=== PATIENT | female | born 1945 | race Caucasian/White ===

== ENCOUNTER 2018-04-21 12:53 | Observation (INO) | payer BC, MEDICARE ==
[~2018-04-21] VITALS: Ht 160 cm; Wt 81.1 kg
[2018-04-21] MEDS ORDERED: HCTZ 25MG25 MG PO (13:47)
[2018-04-21] MEDS ORDERED: LISINOPRIL20 MG PO (13:48)
[2018-04-21 13:57] LABS: EOS % 0.4 % (1.0-5.0); HEMATOCRIT 40.2 % (37.0-47.0); HEMOGLOBIN 13.7 g/dL (12.5-16.0); LYMPH# 1.4 (1.50-4.00); MEAN CELL VOLUME 91 fl (78-100); MEAN CORPUSCULAR HEMOGLOBIN 31 pg (27-31); MEAN CORPUSCULAR HGB CONC 34 g/dL (33-37); MEAN PLATELET VOLUME 11.3 fl (7.4-10.4); MONO # 0.7 (0.20-0.80); NEU # 6.3 (1.40-6.50); PLATELET COUNT 239 K/mm3 (130-400); RED BLOOD COUNT 4.44 M/mm3 (4.10-5.30); RED CELL DISTRIBUTION WIDTH 13.8 % (11.5-14.5); WHITE BLOOD COUNT 8.5 K/mm3 (4.8-10.8)
[2018-04-21 14:08] LABS: ALBUMIN 4.5 g/dL (3.5-5.0); CALCIUM 9.9 mg/dL (8.4-10.2); POTASSIUM 3.8 mmol/L (3.6-5.0); TOTAL BILIRUBIN 0.6 mg/dL (0.2-1.3)
[2018-04-21] MEDS ORDERED: ATORVASTATIN CA40 MG PO (14:48)
[2018-04-21] MEDS ORDERED: NEURONTIN300 MG/CAP PO (14:48)
[2018-04-21] MEDS ORDERED: VICTOZA 3-0.6 MG/0.1 SQ (14:48)
[2018-04-21] MEDS ORDERED: ATENOLOL50 MG PO (14:49)
[2018-04-21] MEDS ORDERED: GLIPIZIDE10 M2 PO (14:49)
[2018-04-21] MEDS ORDERED: TYLENOL PM EX-1 EACH PO (14:50)
[2018-04-21] MEDS ORDERED: TYLENOL 8 HOUR650 M1 PO (14:50)
[2018-04-21] MEDS ORDERED: LEVEMIR100 U/M1 SQ (14:51)
[2018-04-21 15:32] VITALS: BP 203/112
[2018-04-21 18:50] VITALS: BP 172/78
[2018-04-21 20:09] VITALS: BP 157/66
[2018-04-21 20:11] VITALS: BP 157/66
[2018-04-21 22:56] VITALS: BP 179/84
[2018-04-22 02:31] VITALS: BP 142/78
[2018-04-22 06:25] VITALS: BP 145/67
[2018-04-22 06:26] LABS: URINE APPEARANCE CLOUDY; URINE BILIRUBIN NEGATIVE (NEGATIVE); URINE BLOOD 50 ery/uL (NEGATIVE); URINE COLOR YELLOW; URINE GLUCOSE NEGATIVE (NEGATIVE); URINE KETONE NEGATIVE (NEGATIVE); URINE LEUKOCYTE ESTERASE 2+ (NEGATIVE); URINE NITRATE POSITIVE (NEGATIVE); URINE PROTEIN(semi-quant) 1+ mg/dL (NEGATIVE); URINE UROBILINOGEN NORMAL (NORMAL); URINE WBC >50 /hpf (0-3)
[2018-04-22 07:09] LABS: EOS % 0.6 % (1.0-5.0); HEMATOCRIT 34.2 % (37.0-47.0); HEMOGLOBIN 11.6 g/dL (12.5-16.0); LYMPH# 1.4 (1.50-4.00); MEAN CELL VOLUME 91 fl (78-100); MEAN CORPUSCULAR HEMOGLOBIN 31 pg (27-31); MEAN CORPUSCULAR HGB CONC 34 g/dL (33-37); MEAN PLATELET VOLUME 10.9 fl (7.4-10.4); MONO # 0.7 (0.20-0.80); NEU # 4.2 (1.40-6.50); PLATELET COUNT 200 K/mm3 (130-400); RED BLOOD COUNT 3.74 M/mm3 (4.10-5.30); RED CELL DISTRIBUTION WIDTH 13.6 % (11.5-14.5); WHITE BLOOD COUNT 6.4 K/mm3 (4.8-10.8)
[2018-04-22 10:22] VITALS: BP 129/73
[2018-04-22 10:24] VITALS: BP 132/78
[2018-04-22] MEDS ORDERED: CLEOCIN HCL300 MG PO (10:29)
[2018-04-22] MEDS ORDERED: ONDANSETRON HYDR4 MG PO (10:30)
== END 2018-04-22 12:08 | disposition home or self-care (01) ==
LOC: ED 12:53 → MED/SURG 19:40
PROVIDERS: ADMIT Family Medicine
DX: E86.0 Dehydration (principal); N39.0 Urinary tract infection, site not specified; I95.1 Orthostatic hypotension; E11.9 Type 2 diabetes mellitus without complications; R11.2 Nausea with vomiting, unspecified; L97.519 Non-pressure chronic ulcer of other part of right foot with unspecified severity; I10 Essential (primary) hypertension; Z79.4 Long term (current) use of insulin; Z79.899 Other long term (current) drug therapy; Z87.891 Personal history of nicotine dependence
CPT/HCPCS: A4216; G0378; J0696; J1815; J2765; J3490; J7030; J7120

== ENCOUNTER 2018-07-18 10:46 | Emergency (ER) | payer MEDICARE ==
[~2018-07-18] VITALS: Wt 77.2 kg
[~2018-07-18 10:46] MED LIST: ATENOLOL50 MG PO; ATORVASTATIN CA40 MG PO; CLEOCIN HCL300 MG PO; GLIPIZIDE10 M2 PO; HCTZ 25MG25 MG PO; LEVEMIR100 U/M1 SQ; LISINOPRIL20 MG PO; NEURONTIN300 MG/CAP PO; ONDANSETRON HYDR4 MG PO; TYLENOL 8 HOUR650 M1 PO; TYLENOL PM EX-1 EACH PO; VICTOZA 3-0.6 MG/0.1 SQ
[2018-07-18] MEDS ORDERED: ASPIR LOW81 MG PO (11:08)
[2018-07-18] MEDS ORDERED: CARVEDILOL12.5 MG PO (11:09)
[2018-07-18] MEDS ORDERED: INSULIN HUMA100 U/ML SQ (11:10)
[2018-07-18 11:20] LABS: EOS # 0.1 (0.04-0.40); EOS % 0.7 % (1.0-5.0); HEMATOCRIT 39.2 % (37.0-47.0); LYMPH# 1.6 (1.50-4.00); MEAN CELL VOLUME 93 fl (78-100); MEAN CORPUSCULAR HEMOGLOBIN 31 pg (27-31); MEAN CORPUSCULAR HGB CONC 33 g/dL (33-37); MEAN PLATELET VOLUME 11.6 fl (7.4-10.4); MONO # 0.9 (0.20-0.80); PLATELET COUNT 255 K/mm3 (130-400); RED BLOOD COUNT 4.23 M/mm3 (4.10-5.30); RED CELL DISTRIBUTION WIDTH 12.9 % (11.5-14.5); WHITE BLOOD COUNT 12.2 K/mm3 (4.8-10.8)
[2018-07-18 11:23] LABS: NEU # 9.6 (1.40-6.50)
[2018-07-18 11:34] LABS: ALBUMIN 3.9 g/dL (3.5-5.0); CALCIUM 9.8 mg/dL (8.4-10.2); POTASSIUM 4.5 mmol/L (3.6-5.0); TOTAL BILIRUBIN 0.6 mg/dL (0.2-1.3); TOTAL PROTEIN 7.2 g/dL (6.3-8.2)
[2018-07-18 14:06] LABS: URINE APPEARANCE HAZY; URINE COLOR YELLOW
[2018-07-18 14:09] LABS: URINE BILIRUBIN NEGATIVE (NEGATIVE); URINE BLOOD TRACE (NEGATIVE); URINE KETONE TR (NEGATIVE); URINE LEUKOCYTE ESTERASE 2+ (NEGATIVE); URINE NITRATE POSITIVE (NEGATIVE); URINE PROTEIN(semi-quant) NEGATIVE (NEGATIVE); URINE UROBILINOGEN NORMAL (NORMAL); URINE WBC 31-50 /hpf (0-3)
[2018-07-18 14:10] LABS: URINE MUCUS PRESENT (NOT PRESENT)
[2018-07-18 16:40] VITALS: BP 171/80
== END 2018-07-18 14:18 | disposition other institution (70) ==
LOC: ED 10:46
PROVIDERS: Nurse Practitioner Primary Care
DX: E86.0 Dehydration (principal); N39.0 Urinary tract infection, site not specified; N17.9 Acute kidney failure, unspecified; E11.9 Type 2 diabetes mellitus without complications; I10 Essential (primary) hypertension; Z79.4 Long term (current) use of insulin; Z79.82 Long term (current) use of aspirin; Z90.710 Acquired absence of both cervix and uterus
CPT/HCPCS: J2550; J7120

== ENCOUNTER 2018-07-18 14:19 | Inpatient (IN) | payer MEDICARE ==
[~2018-07-18] VITALS: Ht 160 cm; Wt 77.1 kg
[~2018-07-18 14:19] MED LIST changes: +ASPIR LOW81 MG PO; +CARVEDILOL12.5 MG PO; +INSULIN HUMA100 U/ML SQ
[2018-07-18 14:43] VITALS: BP 171/80
[2018-07-18 15:19] VITALS: BP 171/80
[2018-07-18 18:33] VITALS: BP 149/90
[2018-07-18 22:45] VITALS: BP 132/75
[2018-07-19] VITALS (8 sets, daily range): BP systolic 111–159; BP diastolic 65–82
[2018-07-19 06:23] LABS: EOS # 0.1 (0.04-0.40); EOS % 0.9 % (1.0-5.0); HEMATOCRIT 32.7 % (37.0-47.0); HEMOGLOBIN 10.8 g/dL (12.5-16.0); MEAN CELL VOLUME 93 fl (78-100); MEAN CORPUSCULAR HEMOGLOBIN 31 pg (27-31); MEAN CORPUSCULAR HGB CONC 33 g/dL (33-37); MEAN PLATELET VOLUME 11.8 fl (7.4-10.4); MONO # 0.6 (0.20-0.80); NEU # 3.9 (1.40-6.50); PLATELET COUNT 175 K/mm3 (130-400); WHITE BLOOD COUNT 6.6 K/mm3 (4.8-10.8)
[2018-07-19 07:05] LABS: ALBUMIN 2.9 g/dL (3.5-5.0); CALCIUM 8.2 mg/dL (8.4-10.2); POTASSIUM 3.7 mmol/L (3.6-5.0); TOTAL BILIRUBIN 0.4 mg/dL (0.2-1.3); TOTAL PROTEIN 5.6 g/dL (6.3-8.2)
[2018-07-20 02:49] VITALS: BP 137/77
[2018-07-20 06:26] VITALS: BP 116/76
[2018-07-20] MEDS ORDERED: MACROBID 100 M100 MG PO (08:32)
[2018-07-20] MEDS ORDERED: ZOFRAN4 M2 PO (08:57)
[2018-07-20] MEDS ORDERED: PREMARIN30 GM VG (09:05)
== END 2018-07-20 09:47 | disposition home or self-care (01) | DRG 683 ==
LOC: MED/SURG 14:19
PROVIDERS: ADMIT Nurse Practitioner Primary Care
DX: N17.9 Acute kidney failure, unspecified (principal); N39.0 Urinary tract infection, site not specified; E86.0 Dehydration; I10 Essential (primary) hypertension; E11.9 Type 2 diabetes mellitus without complications; Z91.81 History of falling; E78.5 Hyperlipidemia, unspecified; Z79.82 Long term (current) use of aspirin; Z79.4 Long term (current) use of insulin; I95.1 Orthostatic hypotension; R42 Dizziness and giddiness; S62.645A Nondisplaced fracture of proximal phalanx of left ring finger, initial encounter for closed fracture; W19.XXXA Unspecified fall, initial encounter; Y92.009 Unspecified place in unspecified non-institutional (private) residence as the place of occurrence of the external cause
CPT/HCPCS: A4216; C9113; J0696; J1650; J1815; J2405; J7030

== ENCOUNTER → 2018-08-20 | Outpatient (CLI) | payer MEDICARE ==
[~2018-08-20] MED LIST changes: +MACROBID 100 M100 MG PO; +PREMARIN30 GM VG; +ZOFRAN4 M2 PO
[2018-08-20 12:25] LABS: EOS # 0.2 (0.04-0.40); HEMATOCRIT 36.1 % (37.0-47.0); HEMOGLOBIN 11.9 g/dL (12.5-16.0); LYMPH# 1.5 (1.50-4.00); MEAN CELL VOLUME 94 fl (78-100); MEAN CORPUSCULAR HEMOGLOBIN 31 pg (27-31); MEAN CORPUSCULAR HGB CONC 33 g/dL (33-37); MEAN PLATELET VOLUME 11.3 fl (7.4-10.4); MONO # 0.6 (0.20-0.80); NEU # 6.7 (1.40-6.50); PLATELET COUNT 237 K/mm3 (130-400); RED BLOOD COUNT 3.84 M/mm3 (4.10-5.30); RED CELL DISTRIBUTION WIDTH 13.1 % (11.5-14.5)
[2018-08-20 12:31] LABS: ALBUMIN 3.8 g/dL (3.5-5.0); CALCIUM 9.7 mg/dL (8.4-10.2); POTASSIUM 4.1 mmol/L (3.6-5.0); TOTAL BILIRUBIN 0.6 mg/dL (0.2-1.3)
== END ==
LOC: LAB 11:43
PROVIDERS: Family Medicine
DX: E56.9 Vitamin deficiency, unspecified (principal); E78.5 Hyperlipidemia, unspecified; I10 Essential (primary) hypertension; E11.9 Type 2 diabetes mellitus without complications

== ENCOUNTER → 2018-09-03 | Outpatient (CLI) | payer MEDICARE | LOC: MAMMO 09:42 | DX: Z12.31 Encounter for screening mammogram for malignant neoplasm of breast (principal) ==

== ENCOUNTER → 2018-09-03 | Outpatient (CLI) | payer MEDICARE | LOC: RAD 09:43 → MAMMO 10:45 | DX: Z12.31 Encounter for screening mammogram for malignant neoplasm of breast (principal); Z13.820 Encounter for screening for osteoporosis; M85.80 Other specified disorders of bone density and structure, unspecified site; E56.9 Vitamin deficiency, unspecified ==

== ENCOUNTER → 2018-10-14 | Outpatient (CLI) | payer MEDICARE | LOC: RAD 12:06 | DX: E11.621 Type 2 diabetes mellitus with foot ulcer (principal); E11.69 Type 2 diabetes mellitus with other specified complication; E11.40 Type 2 diabetes mellitus with diabetic neuropathy, unspecified; M86.8X7 Other osteomyelitis, ankle and foot ==

== ENCOUNTER → 2018-10-30 | Outpatient (CLI) | payer MEDICARE ==
[2018-10-30 09:03] LABS: EOS # 0.1 (0.04-0.40); EOS % 0.8 % (1.0-5.0); HEMATOCRIT 37.5 % (37.0-47.0); HEMOGLOBIN 12.2 g/dL (12.5-16.0); LYMPH# 1.7 (1.50-4.00); MEAN CELL VOLUME 94 fl (78-100); MEAN CORPUSCULAR HEMOGLOBIN 31 pg (27-31); MEAN CORPUSCULAR HGB CONC 33 g/dL (33-37); MEAN PLATELET VOLUME 10.8 fl (7.4-10.4); PLATELET COUNT 388 K/mm3 (130-400); RED BLOOD COUNT 3.99 M/mm3 (4.10-5.30); RED CELL DISTRIBUTION WIDTH 13.7 % (11.5-14.5); WHITE BLOOD COUNT 13.1 K/mm3 (4.8-10.8)
[2018-10-30 09:05] LABS: NEU # 10.3 (1.40-6.50)
[2018-10-30 09:18] LABS: ALBUMIN 3.3 g/dL (3.4-4.8); CALCIUM 9.6 mg/dL (8.3-10.5); POTASSIUM 4.2 mmol/L (3.5-5.1); TOTAL BILIRUBIN 0.6 mg/dL (0.2-1.2); TOTAL PROTEIN 5.9 g/dL (6.2-8.1)
== END ==
LOC: LAB 08:45
PROVIDERS: Family Medicine
DX: E11.9 Type 2 diabetes mellitus without complications (principal); I10 Essential (primary) hypertension

== ENCOUNTER → 2018-12-04 | Outpatient (CLI) | payer MEDICARE ==
[2018-12-04 10:32] LABS: POTASSIUM 4.3 mmol/L (3.5-5.1)
[2018-12-04 10:33] LABS: CALCIUM 9.8 mg/dL (8.3-10.5)
== END ==
LOC: LAB 10:09
PROVIDERS: Family Medicine
DX: N17.9 Acute kidney failure, unspecified (principal)

== ENCOUNTER → 2019-03-05 | Outpatient (CLI) | payer MEDICARE ==
[2019-03-04 16:06] VITALS: BP 138/76
[~2019-03-05] MED LIST changes: +MORGIDOX 1X100100 MG PO; -NEURONTIN300 MG/CAP PO; +NEURONTIN600 M1 PO
[2019-03-05 09:59] LABS: HEMATOCRIT 29.8 % (37.0-47.0); HEMOGLOBIN 9.8 g/dL (12.5-16.0); MEAN PLATELET VOLUME 11.3 fl (7.4-10.4); RED BLOOD COUNT 3.16 M/mm3 (4.10-5.30); RED CELL DISTRIBUTION WIDTH 13.5 % (11.5-14.5); WHITE BLOOD COUNT 13.8 K/mm3 (4.8-10.8)
[2019-03-05 10:08] LABS: ALBUMIN 3.1 g/dL (3.4-4.8); POTASSIUM 3.5 mmol/L (3.5-5.1)
[2019-03-05 10:09] LABS: CALCIUM 9.4 mg/dL (8.3-10.5)
[2019-03-05 10:11] LABS: TOTAL PROTEIN 6.7 g/dL (6.2-8.1)
[2019-03-05 10:13] LABS: TOTAL BILIRUBIN 0.8 mg/dL (0.2-1.2)
== END ==
LOC: LAB 09:16
PROVIDERS: Physician Assistant
DX: L03.116 Cellulitis of left lower limb (principal); Z79.899 Other long term (current) drug therapy

== ENCOUNTER 2019-03-06 09:05 | Outpatient (RCR) | payer MEDICARE, OTHER ==
[2019-03-04 16:06] VITALS: BP 138/76
--- NOTE | 2019-03-04 20:12 | NUR ---
patient will be back tomorrow (for 5 days) for IV Abt and NS bolus. IV was placed today in right AC, IV was left in place to continue her treatment tomorrow. Teaching was given to patient regarding care of IV site. Patient was weak and unstable in transferring from wheelchair to bed and vice versa. Her blood pressure was elevated and she had a temp of 99.2. I phoned Dr. Heard to inform her of this patients vitals and weakness, she advised for patient to return to this ER after this outpatient visit. I informed patient of this and after reviewing her abnormal vitals and her weakness she continued to refuse doctors advice. Patients states that she does not want to be admitted to another hospital and will not go to ER. Her and her daughter were present and aware of this. I informed Ewa the admission discharge rn and she advised that pt must sign a AMA form. She signed and was wheel chaired out by BOAT RENTAL CLERK and myself to car driven by her . She was also given a walker to borrow, and be returned tomorrow. She was offered a wheel chair but her daughter refused, Stating "her house is not wheel chair acessible, she has stairs."
[2019-03-05 09:16] VITALS: BP 166/82
[2019-03-05 10:46] VITALS: BP 158/88
[~2019-03-06] VITALS: Ht 160 cm; Wt 76.8 kg
[2019-03-06 09:30] VITALS: BP 180/84
[2019-03-06 10:54] VITALS: BP 178/87
[2019-03-19] MEDS ORDERED: INSULIN R (N100 U/ML SQ (18:06)
[2019-03-19] MEDS ORDERED: LEVEMIR100 U/M1 SQ (18:08)
[2019-03-19] MEDS ORDERED: DULCOLAX STOOL100 M1 PO (18:10)
[2019-03-19] MEDS ORDERED: MASON NATURAL325 MG PO (18:11)
[2019-03-19] MEDS ORDERED: NEURONTIN300 M1 PO (18:12)
[2019-03-19] MEDS ORDERED: ZESTRIL20 M1 PO (18:13)
[2019-03-19] MEDS ORDERED: PROTONIX TR40 M1 PO (18:13)
[2019-04-03] MEDS ORDERED: PHENERGAN 25 TA25 MG PO (11:14)
[2019-04-03] MEDS ORDERED: SERTRALINE50 MG PO (11:26)
[2019-04-03] MEDS ORDERED: PAIN & FEVER R500 M1 PO (11:27)
[2019-04-03] MEDS ORDERED: CLEOCIN HCL300 MG PO (11:32)
[2019-04-03] MEDS ORDERED: PROBIOTIC1 EAC1 PO (11:33)
[2019-04-11] MEDS ORDERED: AMOXICILLIN AND1 TA2 PO (14:06)
== END 2019-06-02 | disposition still patient (30) ==
LOC: AMSURD
DX: L03.116 Cellulitis of left lower limb (principal); Z79.899 Other long term (current) drug therapy
CPT/HCPCS: A4216; J0696; J7030

== ENCOUNTER 2019-03-06 11:41 | Emergency (ER) | payer MEDICARE ==
[~2019-03-06] VITALS: Ht 160 cm; Wt 81.0 kg
[2019-03-06 12:18] LABS: HEMATOCRIT 29.6 % (37.0-47.0); HEMOGLOBIN 9.6 g/dL (12.5-16.0); MEAN CELL VOLUME 93 fl (78-100); MEAN CORPUSCULAR HEMOGLOBIN 30 pg (27-31); MEAN CORPUSCULAR HGB CONC 32 g/dL (33-37); MEAN PLATELET VOLUME 11.1 fl (7.4-10.4); PLATELET COUNT 258 K/mm3 (130-400); RED BLOOD COUNT 3.18 M/mm3 (4.10-5.30); RED CELL DISTRIBUTION WIDTH 13.3 % (11.5-14.5); WHITE BLOOD COUNT 12.5 K/mm3 (4.8-10.8)
[2019-03-06 12:28] LABS: BAND 1 % (0-10); LYMPHOCYTE 6 % (20-51); MONOCYTE 3 % (3-10); NEUTROPHILS 89 % (42-75)
[2019-03-06 12:33] LABS: ALBUMIN 3.1 g/dL (3.4-4.8); POTASSIUM 3.7 mmol/L (3.5-5.1)
[2019-03-06 12:34] LABS: CALCIUM 9.1 mg/dL (8.3-10.5)
[2019-03-06 12:36] LABS: TOTAL PROTEIN 6.6 g/dL (6.2-8.1)
[2019-03-06 12:37] LABS: TOTAL BILIRUBIN 0.4 mg/dL (0.2-1.2)
[2019-03-06 13:00] VITALS: BP 107/71
[2019-03-06 13:48] LABS: ERYTHROCYTE SEDIMENTATION RATE 77 mm/hr (0-30)
== END 2019-03-06 13:00 | disposition other institution (70) ==
LOC: ED 11:41 → MED/SURG 13:11
PROVIDERS: Nurse Practitioner Family
DX: L03.116 Cellulitis of left lower limb (principal); I10 Essential (primary) hypertension; I25.10 Atherosclerotic heart disease of native coronary artery without angina pectoris; E11.65 Type 2 diabetes mellitus with hyperglycemia; E11.42 Type 2 diabetes mellitus with diabetic polyneuropathy; Z79.4 Long term (current) use of insulin; Z90.710 Acquired absence of both cervix and uterus; Z98.890 Other specified postprocedural states; W01.0XXA Fall on same level from slipping, tripping and stumbling without subsequent striking against object, initial encounter

== ENCOUNTER 2019-03-06 13:31 | Inpatient (IN) | payer MEDICARE, OTHER ==
[~2019-03-06] VITALS: Ht 157.5 cm; Wt 86.5 kg
[2019-03-06 15:05] VITALS: BP 162/93
[2019-03-06 18:36] VITALS: BP 180/82
[2019-03-06 23:00] VITALS: BP 139/72
[2019-03-07] VITALS (7 sets, daily range): BP systolic 101–161; BP diastolic 52–70
[2019-03-07 07:11] LABS: POTASSIUM 3.5 mmol/L (3.5-5.1)
[2019-03-07 07:12] LABS: CALCIUM 9.2 mg/dL (8.3-10.5); EOS # 0.2 (0.04-0.40); HEMATOCRIT 28.5 % (37.0-47.0); HEMOGLOBIN 9.6 g/dL (12.5-16.0); LYMPH# 1.8 (1.50-4.00); MEAN CELL VOLUME 93 fl (78-100); MEAN CORPUSCULAR HEMOGLOBIN 32 pg (27-31); MEAN CORPUSCULAR HGB CONC 34 g/dL (33-37); MEAN PLATELET VOLUME 10.9 fl (7.4-10.4); MONO # 0.7 (0.20-0.80); NEU # 7.6 (1.40-6.50); PLATELET COUNT 304 K/mm3 (130-400); RED BLOOD COUNT 3.05 M/mm3 (4.10-5.30); RED CELL DISTRIBUTION WIDTH 13.4 % (11.5-14.5); WHITE BLOOD COUNT 10.4 K/mm3 (4.8-10.8)
[2019-03-08 02:45] VITALS: BP 108/65
[2019-03-08 06:07] VITALS: BP 122/75
[2019-03-08 09:22] LABS: EOS # 0.2 (0.04-0.40); EOS % 1.9 % (1.0-5.0); HEMATOCRIT 28.3 % (37.0-47.0); HEMOGLOBIN 9.3 g/dL (12.5-16.0); LYMPH# 1.3 (1.50-4.00); MEAN CELL VOLUME 94 fl (78-100); MEAN CORPUSCULAR HEMOGLOBIN 31 pg (27-31); MEAN CORPUSCULAR HGB CONC 33 g/dL (33-37); MEAN PLATELET VOLUME 10.7 fl (7.4-10.4); MONO # 0.7 (0.20-0.80); NEU # 6.7 (1.40-6.50); PLATELET COUNT 279 K/mm3 (130-400); RED BLOOD COUNT 3.02 M/mm3 (4.10-5.30); RED CELL DISTRIBUTION WIDTH 13.6 % (11.5-14.5); WHITE BLOOD COUNT 8.9 K/mm3 (4.8-10.8)
[2019-03-08 09:28] LABS: ALBUMIN 2.8 g/dL (3.4-4.8); POTASSIUM 3.7 mmol/L (3.5-5.1)
[2019-03-08 09:30] LABS: CALCIUM 8.7 mg/dL (8.3-10.5)
[2019-03-08 09:31] LABS: TOTAL PROTEIN 5.6 g/dL (6.2-8.1)
[2019-03-08 09:33] LABS: TOTAL BILIRUBIN 0.2 mg/dL (0.2-1.2)
[2019-03-08 10:22] LABS: ERYTHROCYTE SEDIMENTATION RATE 105 mm/hr (0-30)
[2019-03-08 11:33] VITALS: BP 144/79
[2019-03-08 15:52] VITALS: BP 128/76
[2019-03-08 18:36] VITALS: BP 136/81
[2019-03-08 23:04] VITALS: BP 106/68
[2019-03-09 03:02] VITALS: BP 127/76
[2019-03-09 06:04] VITALS: BP 141/77
[2019-03-09 11:11] VITALS: BP 146/83
[2019-03-09 15:28] VITALS: BP 144/70
[2019-03-09 18:42] VITALS: BP 154/62
[2019-03-09 23:20] VITALS: BP 137/76
[2019-03-10 03:54] VITALS: BP 139/72
[2019-03-10 06:01] VITALS: BP 120/70
[2019-03-10 11:00] VITALS: BP 149/78
[2019-03-10 15:33] VITALS: BP 146/73
[2019-03-10 18:55] VITALS: BP 171/69
[2019-03-10 23:05] VITALS: BP 127/77
[2019-03-11 02:39] VITALS: BP 146/71
[2019-03-11 06:14] VITALS: BP 115/60
[2019-03-11 07:13] LABS: EOS # 0.3 (0.04-0.40); EOS % 3.4 % (1.0-5.0); HEMATOCRIT 24.3 % (37.0-47.0); LYMPH# 1.5 (1.50-4.00); MEAN CELL VOLUME 94 fl (78-100); MEAN CORPUSCULAR HEMOGLOBIN 31 pg (27-31); MEAN CORPUSCULAR HGB CONC 33 g/dL (33-37); MEAN PLATELET VOLUME 10.3 fl (7.4-10.4); MONO # 0.6 (0.20-0.80); NEU # 4.8 (1.40-6.50); PLATELET COUNT 261 K/mm3 (130-400); RED BLOOD COUNT 2.59 M/mm3 (4.10-5.30); RED CELL DISTRIBUTION WIDTH 13.4 % (11.5-14.5); WHITE BLOOD COUNT 7.3 K/mm3 (4.8-10.8)
[2019-03-11 07:15] LABS: ALBUMIN 2.3 g/dL (3.4-4.8); POTASSIUM 3.5 mmol/L (3.5-5.1)
[2019-03-11 07:16] LABS: CALCIUM 7.8 mg/dL (8.3-10.5)
[2019-03-11 07:37] LABS: TOTAL BILIRUBIN 0.1 mg/dL (0.2-1.2)
[2019-03-11 08:36] LABS: ERYTHROCYTE SEDIMENTATION RATE 89 mm/hr (0-30)
[2019-03-11 11:12] VITALS: BP 148/77
[2019-03-11 15:17] VITALS: BP 142/66
[2019-03-11 18:33] VITALS: BP 149/81
[2019-03-11 23:08] VITALS: BP 114/68
[2019-03-12 03:20] VITALS: BP 132/73
[2019-03-12 06:20] VITALS: BP 132/69
[2019-03-12 11:19] VITALS: BP 162/81
[2019-03-12 15:37] VITALS: BP 150/78
[2019-03-12 17:15] VITALS: BP 175/78
== END 2019-03-12 17:58 | disposition short-term general hospital (02) | DRG 638 ==
LOC: MED/SURG 13:31
PROVIDERS: Family Medicine; ADMIT Nurse Practitioner Family
DX: E11.69 Type 2 diabetes mellitus with other specified complication (principal); M86.8X6 Other osteomyelitis, lower leg; L03.116 Cellulitis of left lower limb; E11.628 Type 2 diabetes mellitus with other skin complications; N17.9 Acute kidney failure, unspecified; B95.2 Enterococcus as the cause of diseases classified elsewhere; B95.1 Streptococcus, group B, as the cause of diseases classified elsewhere; E11.65 Type 2 diabetes mellitus with hyperglycemia; N18.9 Chronic kidney disease, unspecified; I12.9 Hypertensive chronic kidney disease with stage 1 through stage 4 chronic kidney disease, or unspecified chronic kidney disease; E11.22 Type 2 diabetes mellitus with diabetic chronic kidney disease; D63.1 Anemia in chronic kidney disease; Z79.4 Long term (current) use of insulin; I25.10 Atherosclerotic heart disease of native coronary artery without angina pectoris; E11.42 Type 2 diabetes mellitus with diabetic polyneuropathy; R53.81 Other malaise
CPT/HCPCS: A9585; J1650; J1815; J3370; J7030; J7050

== ENCOUNTER 2019-03-19 11:55 | Inpatient (IN) | payer MEDICARE ==
[~2019-03-19] VITALS: Ht 157.5 cm; Wt 79.2 kg
[2019-03-19 14:36] VITALS: BP 165/78
[2019-03-19 17:17] LABS: BASO # 0.1 (0.02-0.10); EOS # 0.4 (0.04-0.40); EOS % 3.5 % (1.0-5.0); HEMATOCRIT 29.8 % (37.0-47.0); HEMOGLOBIN 9.7 g/dL (12.5-16.0); LYMPH# 1.9 (1.50-4.00); MEAN CELL VOLUME 94 fl (78-100); MEAN CORPUSCULAR HEMOGLOBIN 31 pg (27-31); MEAN CORPUSCULAR HGB CONC 33 g/dL (33-37); MEAN PLATELET VOLUME 10.4 fl (7.4-10.4); MONO # 0.7 (0.20-0.80); NEU # 7.1 (1.40-6.50); PLATELET COUNT 290 K/mm3 (130-400); RED BLOOD COUNT 3.17 M/mm3 (4.10-5.30); RED CELL DISTRIBUTION WIDTH 13.9 % (11.5-14.5); WHITE BLOOD COUNT 10.1 K/mm3 (4.8-10.8)
[2019-03-19 17:29] LABS: ALBUMIN 3.2 g/dL (3.4-4.8)
[2019-03-19 17:32] LABS: TOTAL PROTEIN 6.3 g/dL (6.2-8.1)
[2019-03-19 17:33] LABS: TOTAL BILIRUBIN 0.2 mg/dL (0.2-1.2)
[2019-03-19] MEDS ORDERED: INSULIN R (N100 U/ML SQ (18:06)
[2019-03-19] MEDS ORDERED: LEVEMIR100 U/M1 SQ (18:08)
[2019-03-19] MEDS ORDERED: DULCOLAX STOOL100 M1 PO (18:10)
[2019-03-19] MEDS ORDERED: MASON NATURAL325 MG PO (18:11)
[2019-03-19] MEDS ORDERED: NEURONTIN300 M1 PO (18:12)
[2019-03-19] MEDS ORDERED: PROTONIX TR40 M1 PO (18:13)
[2019-03-19] MEDS ORDERED: ZESTRIL20 M1 PO (18:13)
[2019-03-19 18:43] VITALS: BP 165/78
[2019-03-19 19:18] VITALS: BP 172/90
[2019-03-19 20:48] LABS: URINE APPEARANCE CLOUDY; URINE BILIRUBIN NEGATIVE (NEGATIVE); URINE BLOOD TRACE (NEGATIVE); URINE COLOR YELLOW; URINE GLUCOSE NEGATIVE (NEGATIVE); URINE KETONE NEGATIVE (NEGATIVE); URINE LEUKOCYTE ESTERASE 1+ (NEGATIVE); URINE NITRATE NEGATIVE (NEGATIVE); URINE PROTEIN(semi-quant) TRACE mg/dL (NEGATIVE); URINE UROBILINOGEN NORMAL (NORMAL)
[2019-03-20 06:23] VITALS: BP 143/84
[2019-03-20 18:02] VITALS: BP 126/62
[2019-03-21 06:30] VITALS: BP 114/61
[2019-03-21 17:36] VITALS: BP 135/83
[2019-03-22 06:23] VITALS: BP 127/76
[2019-03-22 18:06] VITALS: BP 164/85
[2019-03-23 06:17] VITALS: BP 123/65
[2019-03-23 12:40] VITALS: BP 127/71
[2019-03-23 13:57] VITALS: BP 123/69
[2019-03-24 06:19] VITALS: BP 99/63
[2019-03-24 09:30] VITALS: BP 149/77
[2019-03-24 17:12] VITALS: BP 130/69
[2019-03-25 06:39] VITALS: BP 158/88
[2019-03-25 18:10] VITALS: BP 105/50
[2019-03-26 06:07] VITALS: BP 149/84
[2019-03-26 14:39] LABS: BASO # 0.1 (0.02-0.10); EOS # 0.3 (0.04-0.40); EOS % 3.8 % (1.0-5.0); HEMATOCRIT 30.8 % (37.0-47.0); HEMOGLOBIN 9.8 g/dL (12.5-16.0); LYMPH# 1.4 (1.50-4.00); MEAN CELL VOLUME 95 fl (78-100); MEAN CORPUSCULAR HEMOGLOBIN 30 pg (27-31); MEAN CORPUSCULAR HGB CONC 32 g/dL (33-37); MEAN PLATELET VOLUME 11.1 fl (7.4-10.4); MONO # 0.9 (0.20-0.80); NEU # 5.7 (1.40-6.50); PLATELET COUNT 336 K/mm3 (130-400); RED BLOOD COUNT 3.23 M/mm3 (4.10-5.30); RED CELL DISTRIBUTION WIDTH 13.7 % (11.5-14.5); WHITE BLOOD COUNT 8.3 K/mm3 (4.8-10.8)
[2019-03-26 14:40] VITALS: BP 92/48
[2019-03-26 14:42] LABS: ALBUMIN 3.3 g/dL (3.4-4.8); POTASSIUM 4.1 mmol/L (3.5-5.1)
[2019-03-26 14:43] LABS: CALCIUM 9.8 mg/dL (8.3-10.5)
[2019-03-26 14:44] LABS: TOTAL PROTEIN 6.6 g/dL (6.2-8.1)
[2019-03-26 14:46] LABS: TOTAL BILIRUBIN 0.2 mg/dL (0.2-1.2)
[2019-03-26 19:13] VITALS: BP 182/91
[2019-03-27 06:06] VITALS: BP 125/60
[2019-03-27 18:09] VITALS: BP 144/70
[2019-03-28 06:18] VITALS: BP 114/68
[2019-03-28 16:04] LABS: BASO # 0.1 (0.02-0.10); EOS # 0.5 (0.04-0.40); EOS % 5.6 % (1.0-5.0); HEMATOCRIT 30.8 % (37.0-47.0); HEMOGLOBIN 9.8 g/dL (12.5-16.0); LYMPH# 1.7 (1.50-4.00); MEAN CELL VOLUME 95 fl (78-100); MEAN CORPUSCULAR HEMOGLOBIN 30 pg (27-31); MEAN CORPUSCULAR HGB CONC 32 g/dL (33-37); MEAN PLATELET VOLUME 10.8 fl (7.4-10.4); MONO # 0.9 (0.20-0.80); NEU # 5.6 (1.40-6.50); PLATELET COUNT 335 K/mm3 (130-400); RED BLOOD COUNT 3.25 M/mm3 (4.10-5.30); RED CELL DISTRIBUTION WIDTH 13.5 % (11.5-14.5); WHITE BLOOD COUNT 8.8 K/mm3 (4.8-10.8)
[2019-03-28 17:20] LABS: ERYTHROCYTE SEDIMENTATION RATE 87 mm/hr (0-30)
[2019-03-28 18:08] VITALS: BP 134/78
[2019-03-29 06:24] VITALS: BP 109/63
[2019-03-29 17:41] VITALS: BP 116/80
[2019-03-30 06:26] VITALS: BP 147/80
[2019-03-30 18:24] VITALS: BP 121/66
[2019-03-31 06:23] VITALS: BP 115/72
[2019-03-31 18:33] VITALS: BP 134/78
[2019-04-01 05:55] LABS: BASO # 0.1 (0.02-0.10); EOS # 0.5 (0.04-0.40); EOS % 7.8 % (1.0-5.0); HEMATOCRIT 30.7 % (37.0-47.0); HEMOGLOBIN 9.6 g/dL (12.5-16.0); LYMPH# 1.5 (1.50-4.00); MEAN CELL VOLUME 96 fl (78-100); MEAN CORPUSCULAR HEMOGLOBIN 30 pg (27-31); MEAN CORPUSCULAR HGB CONC 31 g/dL (33-37); MEAN PLATELET VOLUME 10.8 fl (7.4-10.4); MONO # 0.6 (0.20-0.80); NEU # 3.6 (1.40-6.50); PLATELET COUNT 298 K/mm3 (130-400); RED BLOOD COUNT 3.21 M/mm3 (4.10-5.30); RED CELL DISTRIBUTION WIDTH 13.3 % (11.5-14.5); WHITE BLOOD COUNT 6.3 K/mm3 (4.8-10.8)
[2019-04-01 06:13] LABS: POTASSIUM 4.6 mmol/L (3.5-5.1)
[2019-04-01 06:14] LABS: CALCIUM 9.6 mg/dL (8.3-10.5)
[2019-04-01 06:21] VITALS: BP 108/71
[2019-04-01 18:02] VITALS: BP 146/89
[2019-04-02 06:15] VITALS: BP 129/78
[2019-04-02 08:30] VITALS: BP 175/81
[2019-04-02 09:49] LABS: POTASSIUM 4.3 mmol/L (3.5-5.1)
[2019-04-02 09:50] LABS: CALCIUM 9.7 mg/dL (8.3-10.5)
[2019-04-02 18:49] VITALS: BP 159/85
[2019-04-03 06:21] LABS: POTASSIUM 4.5 mmol/L (3.5-5.1)
[2019-04-03 06:22] LABS: CALCIUM 9.4 mg/dL (8.3-10.5)
[2019-04-03 06:28] VITALS: BP 127/72
[2019-04-03] MEDS ORDERED: PHENERGAN 25 TA25 MG PO (11:14)
[2019-04-03] MEDS ORDERED: SERTRALINE50 MG PO (11:26)
[2019-04-03] MEDS ORDERED: PAIN & FEVER R500 M1 PO (11:27)
[2019-04-03] MEDS ORDERED: CLEOCIN HCL300 MG PO (11:32)
[2019-04-03] MEDS ORDERED: PROBIOTIC1 EAC1 PO (11:33)
[2019-04-03 15:01] VITALS: BP 126/70
== END 2019-04-03 15:07 | disposition home health service (06) | DRG 560 ==
LOC: MED/SURG 11:55
PROVIDERS: Family Medicine; Nurse Practitioner Primary Care; Physician Assistant; ADMIT Nurse Practitioner
DX: Z47.81 Encounter for orthopedic aftercare following surgical amputation (principal); L03.116 Cellulitis of left lower limb; N17.9 Acute kidney failure, unspecified; Z89.412 Acquired absence of left great toe; E11.22 Type 2 diabetes mellitus with diabetic chronic kidney disease; E11.65 Type 2 diabetes mellitus with hyperglycemia; I12.9 Hypertensive chronic kidney disease with stage 1 through stage 4 chronic kidney disease, or unspecified chronic kidney disease; N18.9 Chronic kidney disease, unspecified; Z79.4 Long term (current) use of insulin; D50.9 Iron deficiency anemia, unspecified; D63.8 Anemia in other chronic diseases classified elsewhere; I25.10 Atherosclerotic heart disease of native coronary artery without angina pectoris; E11.42 Type 2 diabetes mellitus with diabetic polyneuropathy; M19.90 Unspecified osteoarthritis, unspecified site; E78.5 Hyperlipidemia, unspecified; R53.81 Other malaise; F41.8 Other specified anxiety disorders; B95.2 Enterococcus as the cause of diseases classified elsewhere; B95.1 Streptococcus, group B, as the cause of diseases classified elsewhere; R11.2 Nausea with vomiting, unspecified
CPT/HCPCS: J0696; J1650; J1815; J2405; J7030

== ENCOUNTER → 2019-04-09 | Outpatient (CLI) | payer MEDICARE ==
[2019-04-03 15:01] VITALS: BP 126/70
[~2019-04-09] MED LIST changes: +AMOXICILLIN AND1 TA2 PO; +DULCOLAX STOOL100 M1 PO; +INSULIN R (N100 U/ML SQ; +MASON NATURAL325 MG PO; +NEURONTIN300 M1 PO; +PAIN & FEVER R500 M1 PO; +PHENERGAN 25 TA25 MG PO; +PROBIOTIC1 EAC1 PO; +PROTONIX TR40 M1 PO; +SERTRALINE50 MG PO; +ZESTRIL20 M1 PO
== END ==
LOC: LAB 10:46
DX: E11.621 Type 2 diabetes mellitus with foot ulcer (principal)

== ENCOUNTER 2019-04-11 13:22 | Emergency (ER) | payer MEDICARE ==
[~2019-04-11] VITALS: Wt 78.0 kg
[~2019-04-11 13:22] MED LIST changes: -AMOXICILLIN AND1 TA2 PO
[2019-04-11] MEDS ORDERED: AMOXICILLIN AND1 TA2 PO (14:06)
[2019-04-11 14:20] LABS: BASO # 0.1 (0.02-0.10); EOS # 0.2 (0.04-0.40); EOS % 2.6 % (1.0-5.0); HEMOGLOBIN 10.9 g/dL (12.5-16.0); LYMPH# 1.7 (1.50-4.00); MEAN CELL VOLUME 94 fl (78-100); MEAN CORPUSCULAR HEMOGLOBIN 30 pg (27-31); MEAN CORPUSCULAR HGB CONC 32 g/dL (33-37); MEAN PLATELET VOLUME 10.8 fl (7.4-10.4); MONO # 0.6 (0.20-0.80); NEU # 5.3 (1.40-6.50); PLATELET COUNT 274 K/mm3 (130-400); RED BLOOD COUNT 3.62 M/mm3 (4.10-5.30); RED CELL DISTRIBUTION WIDTH 13.6 % (11.5-14.5); WHITE BLOOD COUNT 7.9 K/mm3 (4.8-10.8)
[2019-04-11 14:29] LABS: POTASSIUM 4.6 mmol/L (3.5-5.1)
[2019-04-11 14:30] LABS: CALCIUM 9.6 mg/dL (8.3-10.5)
[2019-04-11 15:03] VITALS: BP 140/89
== END 2019-04-11 15:04 | disposition home or self-care (01) ==
LOC: ED 13:22
PROVIDERS: Physician Assistant
DX: T87.44 Infection of amputation stump, left lower extremity (principal); L03.032 Cellulitis of left toe; I10 Essential (primary) hypertension; E11.9 Type 2 diabetes mellitus without complications; F32.9 Major depressive disorder, single episode, unspecified; Z90.49 Acquired absence of other specified parts of digestive tract; Z79.4 Long term (current) use of insulin

== ENCOUNTER → 2019-05-13 | Outpatient (CLI) | payer MEDICARE ==
[~2019-05-13] MED LIST changes: +AMOXICILLIN AND1 TA2 PO
[2019-05-13 15:07] LABS: BASO # 0.1 (0.02-0.10); EOS # 0.2 (0.04-0.40); EOS % 2.5 % (1.0-5.0); HEMATOCRIT 34.7 % (37.0-47.0); HEMOGLOBIN 11.2 g/dL (12.5-16.0); LYMPH# 1.4 (1.50-4.00); MEAN CELL VOLUME 91 fl (78-100); MEAN CORPUSCULAR HEMOGLOBIN 29 pg (27-31); MEAN CORPUSCULAR HGB CONC 32 g/dL (33-37); MEAN PLATELET VOLUME 11.2 fl (7.4-10.4); MONO # 0.8 (0.20-0.80); NEU # 6.7 (1.40-6.50); PLATELET COUNT 269 K/mm3 (130-400); RED BLOOD COUNT 3.82 M/mm3 (4.10-5.30); RED CELL DISTRIBUTION WIDTH 13.6 % (11.5-14.5); WHITE BLOOD COUNT 9.2 K/mm3 (4.8-10.8)
[2019-05-13 15:16] LABS: ALBUMIN 3.7 g/dL (3.4-4.8)
[2019-05-13 15:17] LABS: POTASSIUM 4.7 mmol/L (3.5-5.1)
[2019-05-13 15:18] LABS: CALCIUM 9.6 mg/dL (8.3-10.5)
[2019-05-13 15:21] LABS: TOTAL BILIRUBIN 0.3 mg/dL (0.2-1.2)
[2019-05-13 16:08] LABS: ERYTHROCYTE SEDIMENTATION RATE 60 mm/hr (0-30)
== END ==
LOC: LAB 14:50
PROVIDERS: Family Medicine
DX: L03.90 Cellulitis, unspecified (principal)

== ENCOUNTER → 2019-05-15 | Outpatient (CLI) | payer MEDICARE | LOC: RAD 11:19 | DX: S93.129A Dislocation of metatarsophalangeal joint of unspecified toe(s), initial encounter (principal); M86.9 Osteomyelitis, unspecified; L03.90 Cellulitis, unspecified; Z89.412 Acquired absence of left great toe ==

== ENCOUNTER → 2019-07-22 | Outpatient (CLI) | payer MEDICARE ==
[2019-07-22 12:26] LABS: BASO # 0.1 (0.02-0.10); EOS # 0.5 (0.04-0.40); EOS % 4.4 % (1.0-5.0); HEMATOCRIT 36.9 % (37.0-47.0); HEMOGLOBIN 11.9 g/dL (12.5-16.0); MEAN CELL VOLUME 90 fl (78-100); MEAN CORPUSCULAR HEMOGLOBIN 29 pg (27-31); MEAN CORPUSCULAR HGB CONC 32 g/dL (33-37); MEAN PLATELET VOLUME 11.1 fl (7.4-10.4); MONO # 0.8 (0.20-0.80); NEU # 8.2 (1.40-6.50); PLATELET COUNT 324 K/mm3 (130-400); RED BLOOD COUNT 4.11 M/mm3 (4.10-5.30); RED CELL DISTRIBUTION WIDTH 14.9 % (11.5-14.5); WHITE BLOOD COUNT 11.6 K/mm3 (4.8-10.8)
[2019-07-22 14:55] LABS: ALBUMIN 3.9 g/dL (3.4-4.8); POTASSIUM 4.9 mmol/L (3.5-5.1)
[2019-07-22 14:56] LABS: CALCIUM 9.9 mg/dL (8.3-10.5)
[2019-07-22 14:57] LABS: TOTAL PROTEIN 6.7 g/dL (6.2-8.1)
[2019-07-22 14:59] LABS: TOTAL BILIRUBIN 0.2 mg/dL (0.2-1.2)
== END ==
LOC: RAD 12:08
PROVIDERS: Family Medicine
DX: R55 Syncope and collapse (principal)

== ENCOUNTER → 2019-09-05 | Outpatient (CLI) | payer MEDICARE | LOC: CARDLAB 07:42 → CARDREHAB 08:47 → CARDLAB 09:26 | DX: R07.9 Chest pain, unspecified (principal); R55 Syncope and collapse | CPT/HCPCS: A9500 ==

== ENCOUNTER 2019-11-11 16:00 | Emergency (ER) | payer MEDICARE ==
[~2019-11-11] VITALS: Ht 160 cm; Wt 79.1 kg
[2019-11-11 17:05] LABS: BASO # 0.1 (0.02-0.10); EOS # 0.1 (0.04-0.40); EOS % 0.9 % (1.0-5.0); HEMATOCRIT 38.8 % (37.0-47.0); LYMPH# 2.2 (1.50-4.00); MEAN CELL VOLUME 86 fl (78-100); MEAN CORPUSCULAR HEMOGLOBIN 29 pg (27-31); MEAN CORPUSCULAR HGB CONC 34 g/dL (33-37); MEAN PLATELET VOLUME 11.2 fl (7.4-10.4); MONO # 0.8 (0.20-0.80); PLATELET COUNT 298 K/mm3 (130-400); RED BLOOD COUNT 4.52 M/mm3 (4.10-5.30); WHITE BLOOD COUNT 12.6 K/mm3 (4.8-10.8)
[2019-11-11 17:11] LABS: NEU # 9.5 (1.40-6.50)
[2019-11-11 17:15] LABS: ALBUMIN 4.1 g/dL (3.4-4.8)
[2019-11-11 17:16] LABS: POTASSIUM 3.7 mmol/L (3.5-5.1)
[2019-11-11 17:17] LABS: CALCIUM 9.8 mg/dL (8.3-10.5)
[2019-11-11 17:18] LABS: TOTAL PROTEIN 7.3 g/dL (6.2-8.1)
[2019-11-11 17:20] LABS: TOTAL BILIRUBIN 0.5 mg/dL (0.2-1.2)
[2019-11-11 17:30] LABS: TROPONIN-I 0.07 ng/mL (<0.030)
[2019-11-11 19:28] LABS: URINE APPEARANCE CLEAR; URINE BILIRUBIN NEGATIVE (NEGATIVE); URINE BLOOD NEGATIVE (NEGATIVE); URINE COLOR YELLOW; URINE KETONE NEGATIVE (NEGATIVE); URINE LEUKOCYTE ESTERASE NEGATIVE (NEGATIVE); URINE NITRATE NEGATIVE (NEGATIVE); URINE PROTEIN(semi-quant) 2+ mg/dL (NEGATIVE); URINE UROBILINOGEN NORMAL (NORMAL)
[2019-11-11 21:32] VITALS: BP 160/92
== END 2019-11-11 21:32 | disposition short-term general hospital (02) ==
LOC: ED 16:00
PROVIDERS: Nurse Practitioner Family
DX: N17.9 Acute kidney failure, unspecified (principal); I16.1 Hypertensive emergency; R11.2 Nausea with vomiting, unspecified; R51 Headache; R42 Dizziness and giddiness; R79.89 Other specified abnormal findings of blood chemistry; E11.42 Type 2 diabetes mellitus with diabetic polyneuropathy; E11.22 Type 2 diabetes mellitus with diabetic chronic kidney disease; N18.9 Chronic kidney disease, unspecified; I12.9 Hypertensive chronic kidney disease with stage 1 through stage 4 chronic kidney disease, or unspecified chronic kidney disease; F32.9 Major depressive disorder, single episode, unspecified; Z90.89 Acquired absence of other organs; Z90.49 Acquired absence of other specified parts of digestive tract; Z87.891 Personal history of nicotine dependence; Z79.4 Long term (current) use of insulin
CPT/HCPCS: J2405; J3360; J7030; J7050

== ENCOUNTER 2019-11-17 15:55 | Inpatient (IN) | payer MEDICARE ==
[~2019-11-17] VITALS: Ht 160 cm; Wt 82.0 kg
[~2019-11-17 15:55] MED LIST changes: -INSULIN R (N100 U/ML SQ; -ZESTRIL20 M1 PO; +ZESTRIL40 M1 PO
[2019-11-17] MEDS ORDERED: NORCO 325 MG-51 TA1 PO (18:22)
[2019-11-17] MEDS ORDERED: LEVEMIR100 U/M1 SQ (18:23)
[2019-11-17] MEDS ORDERED: NOVOLOG 100U100 U/ML SQ (18:26)
[2019-11-17] MEDS ORDERED: ZOFRAN4 M2 PO (18:27)
[2019-11-17] MEDS ORDERED: GOOD NEIGHBOR500 M2 PO (18:28)
[2019-11-17] MEDS ORDERED: LIPITOR 40MG TA40 MG PO (18:29)
[2019-11-17] MEDS ORDERED: NORVASC 10MG10 MG PO (18:29)
[2019-11-17] MEDS ORDERED: ASPIRIN E.C. 8181 MG PO (18:30)
[2019-11-17] MEDS ORDERED: TOPROL XL 50MG50 MG PO (18:31)
[2019-11-17] MEDS ORDERED: INSULIN R (N100 U/ML SQ (18:32)
[2019-11-17 18:34] VITALS: BP 158/81
[2019-11-17 18:35] VITALS: BP 158/81
[2019-11-17 18:49] LABS: EOS # 0.2 (0.04-0.40); EOS % 2.2 % (1.0-5.0); HEMATOCRIT 32.5 % (37.0-47.0); HEMOGLOBIN 10.4 g/dL (12.5-16.0); LYMPH# 1.4 (1.50-4.00); MEAN CELL VOLUME 90 fl (78-100); MEAN CORPUSCULAR HEMOGLOBIN 29 pg (27-31); MEAN CORPUSCULAR HGB CONC 32 g/dL (33-37); MEAN PLATELET VOLUME 10.8 fl (7.4-10.4); NEU # 7.5 (1.40-6.50); PLATELET COUNT 241 K/mm3 (130-400); RED BLOOD COUNT 3.61 M/mm3 (4.10-5.30); RED CELL DISTRIBUTION WIDTH 14.5 % (11.5-14.5); WHITE BLOOD COUNT 10.1 K/mm3 (4.8-10.8)
[2019-11-17 18:59] LABS: ALBUMIN 3.5 g/dL (3.4-4.8); POTASSIUM 4.4 mmol/L (3.5-5.1)
[2019-11-17 19:01] LABS: CALCIUM 8.7 mg/dL (8.3-10.5)
[2019-11-17 19:02] LABS: TOTAL PROTEIN 6.7 g/dL (6.2-8.1)
[2019-11-17 19:04] LABS: TOTAL BILIRUBIN 0.2 mg/dL (0.2-1.2)
[2019-11-17 20:07] VITALS: BP 161/75
[2019-11-18 05:55] VITALS: BP 167/84
[2019-11-18 17:16] VITALS: BP 117/73
[2019-11-19 06:28] VITALS: BP 150/72
[2019-11-19 17:11] VITALS: BP 160/82
[2019-11-20 06:07] VITALS: BP 149/76
[2019-11-20 17:09] VITALS: BP 138/78
[2019-11-21 05:33] VITALS: BP 14/70
[2019-11-21 08:46] VITALS: BP 144/75
[2019-11-21 18:37] VITALS: BP 154/80
[2019-11-22 05:30] VITALS: BP 145/79
[2019-11-22 17:12] VITALS: BP 133/74
[2019-11-23 05:56] VITALS: BP 140/77
[2019-11-23 12:46] LABS: PH-URINE 8.5 (5.0 - 8.0); URINE APPEARANCE CLOUDY; URINE BILIRUBIN NEGATIVE (NEGATIVE); URINE BLOOD TRACE (NEGATIVE); URINE COLOR YELLOW; URINE GLUCOSE NEGATIVE (NEGATIVE); URINE KETONE NEGATIVE (NEGATIVE); URINE LEUKOCYTE ESTERASE 2+ (NEGATIVE); URINE NITRATE POSITIVE (NEGATIVE); URINE PROTEIN(semi-quant) TRACE mg/dL (NEGATIVE); URINE UROBILINOGEN NORMAL (NORMAL); URINE WBC >50 /hpf (0-3)
[2019-11-23 17:16] VITALS: BP 128/69
[2019-11-24 05:48] VITALS: BP 134/69
[2019-11-24 10:21] LABS: HEMATOCRIT 33.1 % (37.0-47.0); HEMOGLOBIN 10.7 g/dL (12.5-16.0); MEAN CELL VOLUME 90 fl (78-100); MEAN CORPUSCULAR HEMOGLOBIN 29 pg (27-31); MEAN CORPUSCULAR HGB CONC 32 g/dL (33-37); MEAN PLATELET VOLUME 10.7 fl (7.4-10.4); PLATELET COUNT 286 K/mm3 (130-400); RED CELL DISTRIBUTION WIDTH 14.1 % (11.5-14.5); WHITE BLOOD COUNT 10.8 K/mm3 (4.8-10.8)
[2019-11-24 10:26] LABS: POTASSIUM 5.6 mmol/L (3.5-5.1)
[2019-11-24 10:27] LABS: CALCIUM 9.2 mg/dL (8.3-10.5)
[2019-11-24 11:57] LABS: LYMPHOCYTE 14 % (20-51); MONOCYTE 5 % (3-10); NEUTROPHILS 78 % (42-75)
[2019-11-24 17:31] VITALS: BP 123/72
[2019-11-25 05:41] VITALS: BP 163/85
[2019-11-25 17:00] VITALS: BP 137/65
[2019-11-25] MEDS ORDERED: LEVEMIR FLEX100 U/ML SQ ×2 (19:58)
[2019-11-26 05:28] VITALS: BP 149/82
[2019-11-26 06:07] LABS: BASO # 0.1 (0.02-0.10); EOS # 0.2 (0.04-0.40); EOS % 2.3 % (1.0-5.0); HEMATOCRIT 32.8 % (37.0-47.0); HEMOGLOBIN 10.8 g/dL (12.5-16.0); LYMPH# 1.7 (1.50-4.00); MEAN CELL VOLUME 89 fl (78-100); MEAN CORPUSCULAR HEMOGLOBIN 29 pg (27-31); MEAN CORPUSCULAR HGB CONC 33 g/dL (33-37); MEAN PLATELET VOLUME 10.1 fl (7.4-10.4); MONO # 0.7 (0.20-0.80); PLATELET COUNT 300 K/mm3 (130-400); RED BLOOD COUNT 3.67 M/mm3 (4.10-5.30); RED CELL DISTRIBUTION WIDTH 14.1 % (11.5-14.5); WHITE BLOOD COUNT 8.7 K/mm3 (4.8-10.8)
[2019-11-26 08:01] LABS: POTASSIUM 4.9 mmol/L (3.5-5.1)
[2019-11-26 08:02] LABS: CALCIUM 9.7 mg/dL (8.3-10.5)
[2019-11-26] MEDS ORDERED: ECOTRIN325 M1 PO (18:21)
[2019-11-26] MEDS ORDERED: NOVOLOG 100U100 U/ML SQ ×2 (18:22→18:25)
[2019-11-26] MEDS ORDERED: COLACE100 M1 PO (18:23)
[2019-11-26] MEDS ORDERED: MACROBID 100 M100 MG PO (18:25)
[2019-11-26] MEDS ORDERED: MIRALAX17 GM PO (18:35)
[2019-11-26] MEDS ORDERED: PEPCID 20MG TAB20 MG PO (18:36)
[2019-11-26] MEDS ORDERED: ANUSOL-HC2.5% TD (18:37)
[2019-11-26] MEDS ORDERED: BENADRYL ALLERG25 M2 PO (18:38)
[2019-11-26] MEDS ORDERED: DULCOLAX PO (18:39)
== END 2019-11-26 08:19 | disposition home or self-care (01) | DRG 560 ==
LOC: PACU 15:55 → MED/SURG 18:00
PROVIDERS: Family Medicine; ADMIT Nurse Practitioner Primary Care
DX: S82.841D Displaced bimalleolar fracture of right lower leg, subsequent encounter for closed fracture with routine healing (principal); N39.0 Urinary tract infection, site not specified; I12.9 Hypertensive chronic kidney disease with stage 1 through stage 4 chronic kidney disease, or unspecified chronic kidney disease; E11.22 Type 2 diabetes mellitus with diabetic chronic kidney disease; E11.51 Type 2 diabetes mellitus with diabetic peripheral angiopathy without gangrene; N18.9 Chronic kidney disease, unspecified; F32.9 Major depressive disorder, single episode, unspecified; R53.81 Other malaise; W18.30XD Fall on same level, unspecified, subsequent encounter; Z96.653 Presence of artificial knee joint, bilateral; Z89.412 Acquired absence of left great toe; Z90.710 Acquired absence of both cervix and uterus; Z79.4 Long term (current) use of insulin
CPT/HCPCS: J0696; J1650; J1815; J7030

== ENCOUNTER → 2019-12-25 | Outpatient (CLI) | payer MEDICARE ==
[2019-12-09 13:35] VITALS: BP 120/63
[~2019-12-25] MED LIST changes: +ANUSOL-HC2.5% TD; +ASPIRIN E.C. 8181 MG PO; +BENADRYL ALLERG25 M2 PO; +COLACE100 M1 PO; +DULCOLAX PO; +ECOTRIN325 M1 PO; +GOOD NEIGHBOR500 M2 PO; +INSULIN R (N100 U/ML SQ; +LEVEMIR FLEX100 U/ML SQ; +LIPITOR 40MG TA40 MG PO; +MIRALAX17 GM PO; +NORCO 325 MG-51 TA1 PO; +NORVASC 10MG10 MG PO; +NOVOLOG 100U100 U/ML SQ; +PEPCID 20MG TAB20 MG PO; +TOPROL XL 50MG50 MG PO
[2019-12-26 12:37] LABS: POTASSIUM 5.1 mmol/L (3.5-5.1)
[2019-12-26 12:38] LABS: CALCIUM 8.7 mg/dL (8.3-10.5)
== END ==
LOC: LAB 11:04
PROVIDERS: Family Medicine
DX: E11.9 Type 2 diabetes mellitus without complications (principal); I10 Essential (primary) hypertension

== ENCOUNTER → 2019-12-31 | Outpatient (CLI) | payer MEDICARE ==
[2019-12-09 13:35] VITALS: BP 120/63
[2019-12-31 10:21] LABS: URINE APPEARANCE HAZY; URINE BILIRUBIN NEGATIVE (NEGATIVE); URINE BLOOD NEGATIVE (NEGATIVE); URINE COLOR YELLOW; URINE KETONE NEGATIVE (NEGATIVE); URINE LEUKOCYTE ESTERASE NEGATIVE (NEGATIVE); URINE NITRATE NEGATIVE (NEGATIVE); URINE PROTEIN(semi-quant) TRACE mg/dL (NEGATIVE); URINE UROBILINOGEN NORMAL (NORMAL)
== END ==
LOC: LAB 09:46
PROVIDERS: Family Medicine
DX: E11.9 Type 2 diabetes mellitus without complications (principal)

== ENCOUNTER → 2020-01-02 | Outpatient (CLI) | payer MEDICARE ==
[2019-12-09 13:35] VITALS: BP 120/63
[~2020-01-02] MED LIST changes: +LIPITOR20 M2 PO
[2020-01-02 11:33] LABS: URINE APPEARANCE HAZY; URINE BILIRUBIN NEGATIVE (NEGATIVE); URINE BLOOD NEGATIVE (NEGATIVE); URINE COLOR YELLOW; URINE GLUCOSE NEGATIVE (NEGATIVE); URINE KETONE NEGATIVE (NEGATIVE); URINE NITRATE NEGATIVE (NEGATIVE); URINE PROTEIN(semi-quant) TRACE mg/dL (NEGATIVE); URINE UROBILINOGEN NORMAL (NORMAL)
[2020-01-02 11:34] LABS: URINE LEUKOCYTE ESTERASE TRACE (NEGATIVE)
== END ==
LOC: LAB 10:23
PROVIDERS: Family Medicine
DX: R82.90 Unspecified abnormal findings in urine (principal)

== ENCOUNTER 2020-01-14 21:29 | Inpatient (IN) | payer MEDICARE ==
[~2020-01-14] VITALS: Ht 160 cm; Wt 76.1 kg
[~2020-01-14 21:29] MED LIST changes: +ZOFRAN8 MG PO
[2020-01-14 22:50] VITALS: BP 153/74
[2020-01-14 22:56] VITALS: BP 153/74
[2020-01-15 01:42] VITALS: BP 154/64
[2020-01-15 05:48] VITALS: BP 149/64
[2020-01-15 07:26] LABS: HEMATOCRIT 28.4 % (37.0-47.0); HEMOGLOBIN 9.4 g/dL (12.5-16.0); MEAN CELL VOLUME 91 fl (78-100); MEAN CORPUSCULAR HEMOGLOBIN 30 pg (27-31); MEAN CORPUSCULAR HGB CONC 33 g/dL (33-37); MEAN PLATELET VOLUME 10.7 fl (7.4-10.4); PLATELET COUNT 202 K/mm3 (130-400); RED BLOOD COUNT 3.11 M/mm3 (4.10-5.30); RED CELL DISTRIBUTION WIDTH 15.5 % (11.5-14.5); WHITE BLOOD COUNT 13.2 K/mm3 (4.8-10.8)
[2020-01-15 07:40] LABS: POTASSIUM 4.4 mmol/L (3.5-5.1)
[2020-01-15 07:41] LABS: CALCIUM 8.8 mg/dL (8.3-10.5)
[2020-01-15 07:50] LABS: LYMPHOCYTE 10 % (20-51); MONOCYTE 5 % (3-10); NEUTROPHILS 85 % (42-75)
[2020-01-15 10:07] VITALS: BP 145/74
[2020-01-15 14:08] VITALS: BP 130/73
[2020-01-15 17:17] VITALS: BP 123/74
[2020-01-15 22:19] VITALS: BP 149/75
[2020-01-16 02:07] VITALS: BP 111/62
[2020-01-16 05:48] VITALS: BP 156/70
[2020-01-16 10:00] VITALS: BP 149/54
[2020-01-16 13:41] VITALS: BP 120/71
[2020-01-16 17:18] VITALS: BP 130/70
[2020-01-16 21:51] VITALS: BP 162/77
[2020-01-17] VITALS (7 sets, daily range): BP systolic 115–168; BP diastolic 64–106
[2020-01-18 02:35] VITALS: BP 150/66
[2020-01-18 06:26] VITALS: BP 179/84
[2020-01-18 10:00] VITALS: BP 132/73
[2020-01-18 14:15] VITALS: BP 132/78
[2020-01-18 16:57] VITALS: BP 164/78
[2020-01-18 21:41] VITALS: BP 143/72
[2020-01-19 02:19] VITALS: BP 149/78
[2020-01-19 06:30] VITALS: BP 169/92
[2020-01-19 09:59] VITALS: BP 154/82
[2020-01-19] MEDS ORDERED: CEFDINIR300 MG PO (10:33)
== END 2020-01-19 14:05 | disposition home health service (06) | DRG 690 ==
LOC: MED/SURG 21:29
PROVIDERS: ADMIT Physician Assistant
DX: N39.0 Urinary tract infection, site not specified (principal); N17.9 Acute kidney failure, unspecified; N18.9 Chronic kidney disease, unspecified; N12 Tubulo-interstitial nephritis, not specified as acute or chronic; E11.22 Type 2 diabetes mellitus with diabetic chronic kidney disease; E11.65 Type 2 diabetes mellitus with hyperglycemia; I12.9 Hypertensive chronic kidney disease with stage 1 through stage 4 chronic kidney disease, or unspecified chronic kidney disease; Z66 Do not resuscitate; R19.7 Diarrhea, unspecified; Z79.4 Long term (current) use of insulin; Z79.82 Long term (current) use of aspirin; Z79.891 Long term (current) use of opiate analgesic; Z87.440 Personal history of urinary (tract) infections; Z96.651 Presence of right artificial knee joint; Z90.710 Acquired absence of both cervix and uterus; Z89.412 Acquired absence of left great toe
CPT/HCPCS: J0696; J1815; J7030

== ENCOUNTER → 2020-03-24 | Outpatient (CLI) | payer MEDICARE ==
[~2020-03-24] MED LIST changes: +CEFDINIR300 MG PO
[2020-03-24 17:23] LABS: POTASSIUM 4.5 mmol/L (3.5-5.1)
[2020-03-24 17:25] LABS: CALCIUM 9.4 mg/dL (8.3-10.5)
== END ==
LOC: LAB 16:57
PROVIDERS: Family Medicine
DX: E78.5 Hyperlipidemia, unspecified (principal); I10 Essential (primary) hypertension; E10.9 Type 1 diabetes mellitus without complications

== ENCOUNTER → 2020-05-24 | Outpatient (CLI) | payer MEDICARE ==
[2020-05-16 18:36] VITALS: BP 127/88
[~2020-05-24] MED LIST changes: +AMLODIPINE BESYL5 MG PO; +ATORVASTATIN CA20 MG PO; +FAMOTIDINE20 MG PO; +GABAPENTIN TAB600 MG PO; +LISINOPRIL40 MG PO; +PROBIOTIC1 EAC3 PO; +ZOFRAN ODT4 MG PO
[2020-05-24 17:28] LABS: BASO # 0.1 (0.02-0.10); EOS # 0.2 (0.04-0.40); EOS % 2.1 % (1.0-5.0); HEMATOCRIT 35.4 % (37.0-47.0); HEMOGLOBIN 11.7 g/dL (12.5-16.0); LYMPH# 1.1 (1.50-4.00); MEAN CELL VOLUME 97 fl (78-100); MEAN CORPUSCULAR HEMOGLOBIN 32 pg (27-31); MEAN CORPUSCULAR HGB CONC 33 g/dL (33-37); MONO # 0.7 (0.20-0.80); NEU # 5.5 (1.40-6.50); PLATELET COUNT 237 K/mm3 (130-400); RED BLOOD COUNT 3.64 M/mm3 (4.10-5.30); RED CELL DISTRIBUTION WIDTH 12.9 % (11.5-14.5); WHITE BLOOD COUNT 7.5 K/mm3 (4.8-10.8)
[2020-05-24 17:35] LABS: MEAN PLATELET VOLUME 12.4 fl (7.4-10.4)
[2020-05-24 17:41] LABS: ALBUMIN 3.9 g/dL (3.4-4.8); POTASSIUM 5.3 mmol/L (3.5-5.1)
[2020-05-24 17:43] LABS: TOTAL PROTEIN 6.7 g/dL (6.2-8.1)
[2020-05-24 17:45] LABS: TOTAL BILIRUBIN 0.3 mg/dL (0.2-1.2)
== END ==
LOC: LAB 16:31
PROVIDERS: Family Medicine
DX: N17.9 Acute kidney failure, unspecified (principal); E11.9 Type 2 diabetes mellitus without complications

== ENCOUNTER 2020-05-29 17:00 | Inpatient (IN) | payer MEDICARE ==
[~2020-05-29] VITALS: Ht 160 cm; Wt 78.5 kg
[~2020-05-29 17:00] MED LIST changes: -AMLODIPINE BESYL5 MG PO; +DITROPAN XL 5MG5 M1 PO
[2020-05-29 18:03] VITALS: BP 217/106
--- NOTE | 2020-05-29 19:31 | NUR ---
Report received from Zehra Franco RN and care assumed. Pt resting in bed with no complaints at this time. Call light in reach, bed alarm on. No needs at this time.
--- NOTE | 2020-05-29 20:30 | NUR ---
Upon assessment, pt states pain is "just a little ache" on the left side of the abdomen. No request for pain medication at this time. Denies nausea or need for medication to control nausea. Continues resting in bed, call light in reach, bed alarm on.
[2020-05-29 22:31] VITALS: BP 180/84
--- NOTE | 2020-05-29 23:32 | NUR ---
Pt resting in bed with eyes closed and no signs of distress or discomfort noted at this time.
--- NOTE | 2020-05-30 01:42 | NUR ---
Pt resting in bed with eyes closed and no signs of destress or discomfort at this time. IV fluids continue to infuse. Call light in reach, bed alarm on.
[2020-05-30 02:02] VITALS: BP 103/61
--- NOTE | 2020-05-30 03:39 | NUR ---
Pt continues resting in bed with eyes closed and no signs of distress or discomfort noted. Call light in reach, bed alarm on.
--- NOTE | 2020-05-30 04:23 | NUR ---
Per CONTACT OFFICER, pt up to bathroom and had 1-2 tablespoons of dark red blood on toilet paper when wiping. No blood noted on brief while pt was in bed and no blood noted in toilet.
[2020-05-30 06:04] VITALS: BP 104/66
--- NOTE | 2020-05-30 06:30 | NUR ---
Pt woken up to take protonix. No needs or concerns noted at this time. Returns back to sleep easily, IV continues to infuse without issue.
--- NOTE | 2020-05-30 07:19 | NUR ---
Report given to RUBI Eduardo and care transferred at this time.
[2020-05-30 08:26] LABS: EOS # 0.2 (0.04-0.40); EOS % 1.7 % (1.0-5.0); HEMATOCRIT 31.1 % (37.0-47.0); HEMOGLOBIN 10.2 g/dL (12.5-16.0); LYMPH# 1.3 (1.50-4.00); MEAN CELL VOLUME 97 fl (78-100); MEAN CORPUSCULAR HEMOGLOBIN 32 pg (27-31); MEAN CORPUSCULAR HGB CONC 33 g/dL (33-37); MEAN PLATELET VOLUME 11.3 fl (7.4-10.4); MONO # 0.9 (0.20-0.80); NEU # 7.8 (1.40-6.50); PLATELET COUNT 183 K/mm3 (130-400); RED BLOOD COUNT 3.21 M/mm3 (4.10-5.30); RED CELL DISTRIBUTION WIDTH 12.4 % (11.5-14.5); WHITE BLOOD COUNT 10.2 K/mm3 (4.8-10.8)
[2020-05-30 08:42] VITALS: BP 126/69
[2020-05-30 14:14] VITALS: BP 123/65
[2020-05-30 16:53] VITALS: BP 148/76
--- NOTE | 2020-05-30 20:35 | NUR ---
Report received from Alesha VENEGAS earlier, care maintained until this time and report given to RUBI Fuller who will resume care.
[2020-05-30 22:18] VITALS: BP 150/79
[2020-05-31 02:12] VITALS: BP 156/76
--- NOTE | 2020-05-31 05:14 | NUR ---
PT UP TO THE BATHROOM. PT HAS SMALL AMOUNT OF FRNAK BLOOD IN STOOL. PT DENIES PAIN WHEN ASKED. PT REPORTS PASSING GAS BUT NO PAIN IN ABDOMEN.
[2020-05-31 06:11] VITALS: BP 116/64
--- NOTE | 2020-05-31 06:25 | NUR ---
IV CIPROO STARTED AT THIS TIME
[2020-05-31 06:51] LABS: POTASSIUM 4.1 mmol/L (3.5-5.1)
[2020-05-31 06:53] LABS: CALCIUM 8.3 mg/dL (8.3-10.5)
--- NOTE | 2020-05-31 07:05 | NUR ---
PT GLUCOSE ON LAB 59. OJ WITH SUGAR AND A SLICE OF PEANUT BUTTER TOAST PROVIDED SIMCE PT WAS ALERT, ORIENTED AND TALKING. DR. RUBY WAS AWARE OF PT GLUCOSE.
--- NOTE | 2020-05-31 08:00 | NUR ---
HARISH WASHINGTON PA IN TO SEE PATIENT AT THIS TIME. ASKED ABOUT GETTING STOOL STUDIES, REPORTS PLAN TO PUT ORDERS IN. NOTIFIED OF PATIENT'S WEIGHT GAIN SINCE ADMISSION.
--- NOTE | 2020-05-31 08:15 | NUR ---
PATIENT'S SHIFT ASSESSMENT COMPLETE. PATIENT ALERT AND ORIENTED X4. DENIES ANY PAIN OR DISCOMFORTS COLOR SLIGHTLY PALE. PATIENT REPORTS FEELING BETTER TODAY. PATIENT DENIES SHORTNES OF BREAHTH OR DIFFICULTIES BREATHING. PATIENT TOLERATED BRAT DIET WELL FOR BREAKFAST. PATIENT HAS AREA TO RIGHT BOTTOM OF FOOT THAT WAS A CALUS. REPORST TA DOCTOR HAD PREVIOSLY TAKEN TOP OF CALUS OFF BECAUSE IT WAS "BLISTERED" UNDER. REPORTS THAT DR STATED THAT IT LOOKED GOOD AND PUT A DRESSING ON IT. PATIENT HAS 1CM ROUND OPEN AREA APPROXIMATELY 2MM DEEP. SURROUNDING AREA HAS DRY BROWN CALUSED SKIN WITH SOME SLIGHT REDNESS SURROUDING THAT. AREA CLEANSED WITH STERILE SALINE AND MEPILEX LITE FOAM APPLIED.
[2020-05-31 08:59] LABS: HEMATOCRIT 34.2 % (37.0-47.0); HEMOGLOBIN 10.9 g/dL (12.5-16.0); MEAN CELL VOLUME 98 fl (78-100); MEAN CORPUSCULAR HEMOGLOBIN 31 pg (27-31); MEAN CORPUSCULAR HGB CONC 32 g/dL (33-37); MEAN PLATELET VOLUME 11.3 fl (7.4-10.4); PLATELET COUNT 246 K/mm3 (130-400); RED BLOOD COUNT 3.49 M/mm3 (4.10-5.30); RED CELL DISTRIBUTION WIDTH 12.7 % (11.5-14.5); WHITE BLOOD COUNT 14.1 K/mm3 (4.8-10.8)
[2020-05-31 09:25] LABS: LYMPHOCYTE 9 % (20-51); MONOCYTE 5 % (3-10); NEUTROPHILS 84 % (42-75)
[2020-05-31 09:58] VITALS: BP 105/70
[2020-05-31 14:10] VITALS: BP 118/67
[2020-05-31 18:04] VITALS: BP 96/62
--- NOTE | 2020-05-31 19:12 | NUR ---
REPORT GIVEN TO RIDDHI CARLIN LPN
--- NOTE | 2020-05-31 19:28 | NUR ---
Report from Tami VENEGAS. Patient up in recliner with legs elevated. IV Cipro infusing via pump. Site patent. A/O x4. Denies pain or nausea. States had one BM today with blood and 1 after with no blood. Stool tests pending. Assessment completed. Requests and given hot tea. Remains on contact isolation pending C-DIFF results.
--- NOTE | 2020-05-31 23:01 | NUR ---
IV Flagyl completed. INT site with slight leaking around insertion site. Patient noted to be a very hard stick. Will continue to monitor. LINE INSTALLER REPAIRER in to assist with HS cares.
[2020-05-31 23:17] VITALS: BP 126/52
[2020-06-01 02:25] VITALS: BP 105/56
--- NOTE | 2020-06-01 05:27 | NUR ---
AM medication taken and IV Cirpo started. Denies pain. No loose stools this shift. Refuses SCD's.
[2020-06-01 06:10] VITALS: BP 99/63
[2020-06-01 06:21] LABS: EOS # 0.3 (0.04-0.40); EOS % 2.5 % (1.0-5.0); HEMATOCRIT 30.1 % (37.0-47.0); HEMOGLOBIN 9.8 g/dL (12.5-16.0); LYMPH# 1.5 (1.50-4.00); MEAN CELL VOLUME 97 fl (78-100); MEAN CORPUSCULAR HEMOGLOBIN 32 pg (27-31); MEAN CORPUSCULAR HGB CONC 33 g/dL (33-37); MEAN PLATELET VOLUME 11.6 fl (7.4-10.4); MONO # 0.8 (0.20-0.80); NEU # 7.3 (1.40-6.50); PLATELET COUNT 199 K/mm3 (130-400); RED CELL DISTRIBUTION WIDTH 12.5 % (11.5-14.5); WHITE BLOOD COUNT 9.9 K/mm3 (4.8-10.8)
[2020-06-01 06:25] LABS: ALBUMIN 2.8 g/dL (3.4-4.8)
[2020-06-01 06:27] LABS: CALCIUM 8.2 mg/dL (8.3-10.5)
[2020-06-01 06:28] LABS: TOTAL PROTEIN 4.8 g/dL (6.2-8.1)
[2020-06-01 06:30] LABS: TOTAL BILIRUBIN 0.3 mg/dL (0.2-1.2)
--- NOTE | 2020-06-01 07:08 | NUR ---
Report to Magdalnea VENEGAS.
[2020-06-01 10:20] VITALS: BP 132/63
[2020-06-01] MEDS ORDERED: VANCOMYCIN HYD125 MG PO (10:58)
--- NOTE | 2020-06-01 11:04 | NUR ---
spoke with Tish today. She feels safe at home. she states that her doesn't always understand her medical conditions. Her is supportive in helping around the home. She does sometimes get a little down because she doesn't want to be sick all the time. Offered her [employer] program information. She is not interested at this time. She states she talks with her grandson and her sister and her daughter.
[2020-06-01 13:58] VITALS: BP 117/53
--- NOTE | 2020-06-01 14:05 | NUR ---
the pt is provided discharge instructions and education and denies having any questions or concerns. these are provided to her , as well. the pt is alert and oriented and respirations are even and unlabored. the pt is taken off unit to and leaves via pov with all personal belongings in hand.
== END 2020-06-01 14:05 | disposition home or self-care (01) | DRG 372 ==
LOC: MED/SURG 17:00
PROVIDERS: Nurse Practitioner; ADMIT Family Medicine
DX: A04.72 Enterocolitis due to Clostridium difficile, not specified as recurrent (principal); K92.2 Gastrointestinal hemorrhage, unspecified; I12.9 Hypertensive chronic kidney disease with stage 1 through stage 4 chronic kidney disease, or unspecified chronic kidney disease; N18.9 Chronic kidney disease, unspecified; E11.22 Type 2 diabetes mellitus with diabetic chronic kidney disease; F32.9 Major depressive disorder, single episode, unspecified; D72.829 Elevated white blood cell count, unspecified; Z79.4 Long term (current) use of insulin; Z90.710 Acquired absence of both cervix and uterus
CPT/HCPCS: J0744; J1815; J3490; J7030

== ENCOUNTER → 2020-06-07 | Outpatient (CLI) | payer MEDICARE ==
[2020-06-01 13:58] VITALS: BP 117/53
[~2020-06-07] MED LIST changes: +VANCOMYCIN HYD125 MG PO
[2020-06-07 16:30] LABS: BASO # 0.1 (0.02-0.10); EOS # 0.2 (0.04-0.40); EOS % 2.8 % (1.0-5.0); HEMATOCRIT 33.1 % (37.0-47.0); HEMOGLOBIN 11.1 g/dL (12.5-16.0); LYMPH# 1.7 (1.50-4.00); MEAN CELL VOLUME 96 fl (78-100); MEAN CORPUSCULAR HEMOGLOBIN 32 pg (27-31); MEAN CORPUSCULAR HGB CONC 34 g/dL (33-37); MEAN PLATELET VOLUME 10.9 fl (7.4-10.4); MONO # 0.7 (0.20-0.80); NEU # 5.9 (1.40-6.50); PLATELET COUNT 273 K/mm3 (130-400); RED BLOOD COUNT 3.46 M/mm3 (4.10-5.30); RED CELL DISTRIBUTION WIDTH 12.4 % (11.5-14.5); WHITE BLOOD COUNT 8.7 K/mm3 (4.8-10.8)
[2020-06-07 16:39] LABS: ALBUMIN 3.5 g/dL (3.4-4.8); POTASSIUM 4.4 mmol/L (3.5-5.1)
[2020-06-07 16:40] LABS: CALCIUM 8.9 mg/dL (8.3-10.5)
[2020-06-07 16:41] LABS: TOTAL PROTEIN 6.4 g/dL (6.2-8.1)
[2020-06-07 16:43] LABS: TOTAL BILIRUBIN 0.2 mg/dL (0.2-1.2)
== END ==
LOC: LAB 15:20
PROVIDERS: Family Medicine
DX: D64.9 Anemia, unspecified (principal); N17.9 Acute kidney failure, unspecified

== ENCOUNTER → 2020-06-28 | Outpatient (CLI) | payer MEDICARE ==
[2020-06-01 13:58] VITALS: BP 117/53
== END ==
LOC: LAB 07:43
DX: Z01.812 Encounter for preprocedural laboratory examination (principal); Z20.822 Contact with and (suspected) exposure to COVID-19

== ENCOUNTER → 2020-07-01 | Day surgery (SDC) | payer MEDICARE, OTHER ==
[2020-06-01 13:58] VITALS: BP 117/53
[~2020-07-01] MED LIST changes: +BACTRIM DS TAB1 EACH PO; +METOPROLOL SUCC25 M1 PO; +PROBIOTICA100 MILLIO PO; +ZESTRIL10 M1 PO
== END | disposition home or self-care (01) ==
LOC: MSO 07:49
DX: Z12.11 Encounter for screening for malignant neoplasm of colon (principal); K63.5 Polyp of colon; K64.8 Other hemorrhoids; E11.42 Type 2 diabetes mellitus with diabetic polyneuropathy; I10 Essential (primary) hypertension; Z79.4 Long term (current) use of insulin; Z79.899 Other long term (current) drug therapy; F32.9 Major depressive disorder, single episode, unspecified
CPT/HCPCS: 00811; J2704; J7030

== ENCOUNTER → 2020-11-16 | Outpatient (CLI) | payer MEDICARE, OTHER ==
[2020-11-16 12:30] LABS: BASO # 0.05 (0.02-0.10); EOS # 0.13 (0.04-0.40); EOS % 1.9 % (1.0-5.0); HEMATOCRIT 29.6 % (37.0-47.0); LYMPH# 0.91 (1.50-4.00); MEAN CELL VOLUME 100 fl (78-100); MEAN CORPUSCULAR HEMOGLOBIN 34 pg (27-31); MEAN CORPUSCULAR HGB CONC 34 g/dL (33-37); MONO # 0.34 (0.20-0.80); NEU # 5.57 (1.40-6.50); PLATELET COUNT 222 K/mm3 (130-400); RED BLOOD COUNT 2.96 M/mm3 (4.10-5.30); RED CELL DISTRIBUTION WIDTH 15.1 % (11.5-14.5)
[2020-11-16 12:34] LABS: ALBUMIN 3.5 g/dL (3.4-4.8); POTASSIUM 5.4 mmol/L (3.5-5.1)
[2020-11-16 12:38] LABS: TOTAL BILIRUBIN 0.2 mg/dL (0.2-1.2)
== END ==
LOC: LAB 12:05
PROVIDERS: Family Medicine
DX: Z00.00 Encounter for general adult medical examination without abnormal findings (principal); E78.5 Hyperlipidemia, unspecified; E11.9 Type 2 diabetes mellitus without complications

== ENCOUNTER 2020-12-19 03:22 | Emergency (ER) | payer MEDICARE, OTHER ==
[~2020-12-19] VITALS: Ht 160 cm; Wt 71.0 kg
[~2020-12-19 03:22] MED LIST changes: -BACTRIM DS TAB1 EACH PO; -METOPROLOL SUCC25 M1 PO; -PROBIOTICA100 MILLIO PO; -ZESTRIL10 M1 PO
[2020-12-19] MEDS ORDERED: BACTRIM DS TAB1 EACH PO (03:42)
[2020-12-19 05:46] VITALS: BP 162/86
[2021-01-06] MEDS ORDERED: LIPITOR20 M2 PO (12:59)
[2021-01-06] MEDS ORDERED: METOPROLOL SUCC25 M1 PO (13:00)
[2021-01-06] MEDS ORDERED: ZESTRIL10 M1 PO (13:00)
[2021-01-06] MEDS ORDERED: PROBIOTICA100 MILLIO PO (13:01)
[2021-01-06] MEDS ORDERED: ASPIRIN E.C. 8181 MG PO (13:01)
== END 2020-12-19 05:46 | disposition home or self-care (01) ==
LOC: ED 03:22
DX: S51.011A Laceration without foreign body of right elbow, initial encounter (principal); S70.01XA Contusion of right hip, initial encounter; M54.2 Cervicalgia; E11.9 Type 2 diabetes mellitus without complications; I12.9 Hypertensive chronic kidney disease with stage 1 through stage 4 chronic kidney disease, or unspecified chronic kidney disease; N18.9 Chronic kidney disease, unspecified; Z79.4 Long term (current) use of insulin; W01.10XA Fall on same level from slipping, tripping and stumbling with subsequent striking against unspecified object, initial encounter

== ENCOUNTER 2021-01-04 08:58 | Emergency (ER) | payer MEDICARE ==
[~2021-01-04] VITALS: Ht 172.7 cm; Wt 79.2 kg
[~2021-01-04 08:58] MED LIST changes: +BACTRIM DS TAB1 EACH PO
[2021-01-04 09:33] LABS: BASO # 0.04 (0.02-0.10); EOS # 0.05 (0.04-0.40); EOS % 0.7 % (1.0-5.0); HEMATOCRIT 30.1 % (37.0-47.0); HEMOGLOBIN 10.1 g/dL (12.5-16.0); LYMPH# 0.79 (1.50-4.00); MEAN CELL VOLUME 106 fl (78-100); MEAN CORPUSCULAR HEMOGLOBIN 35 pg (27-31); MEAN CORPUSCULAR HGB CONC 34 g/dL (33-37); MEAN PLATELET VOLUME 11.5 fl (7.4-10.4); MONO # 0.36 (0.20-0.80); NEU # 6.41 (1.40-6.50); PLATELET COUNT 211 K/mm3 (130-400); RED BLOOD COUNT 2.85 M/mm3 (4.10-5.30); RED CELL DISTRIBUTION WIDTH 14.8 % (11.5-14.5); WHITE BLOOD COUNT 7.7 K/mm3 (4.8-10.8)
[2021-01-04 09:44] LABS: ALBUMIN 3.5 g/dL (3.4-4.8); POTASSIUM 4.6 mmol/L (3.5-5.1); SODIUM 137 mmol/L (136-145)
[2021-01-04 09:46] LABS: CALCIUM 9.5 mg/dL (8.3-10.5)
[2021-01-04 09:47] LABS: GLUCOSE 289 mg/dL (65-105); TOTAL PROTEIN 6.3 g/dL (6.2-8.1)
[2021-01-04 09:48] LABS: CARBON DIOXIDE 19 mmol/L (23-31)
[2021-01-04 09:49] LABS: TOTAL BILIRUBIN 0.8 mg/dL (0.2-1.2)
[2021-01-04 09:52] LABS: AST-SGOT 11 U/L (5-34)
[2021-01-04 09:53] LABS: ALT/SGPT 10 U/L (0-55)
[2021-01-04 10:02] LABS: TROPONIN-I < 0.03 ng/mL (<0.030)
[2021-01-04 11:31] LABS: URINE APPEARANCE CLOUDY; URINE BILIRUBIN NEGATIVE (NEGATIVE); URINE BLOOD 50 ery/uL (NEGATIVE); URINE COLOR YELLOW; URINE KETONE NEGATIVE (NEGATIVE); URINE LEUKOCYTE ESTERASE 1+ (NEGATIVE); URINE NITRATE NEGATIVE (NEGATIVE); URINE PROTEIN(semi-quant) 2+ mg/dL (NEGATIVE); URINE UROBILINOGEN NORMAL (NORMAL)
[2021-01-04 13:35] VITALS: BP 159/96
[2021-01-06] MEDS ORDERED: LIPITOR20 M2 PO (12:59)
[2021-01-06] MEDS ORDERED: ZESTRIL10 M1 PO (13:00)
[2021-01-06] MEDS ORDERED: METOPROLOL SUCC25 M1 PO (13:00)
[2021-01-06] MEDS ORDERED: ASPIRIN E.C. 8181 MG PO (13:01)
[2021-01-06] MEDS ORDERED: PROBIOTICA100 MILLIO PO (13:01)
== END 2021-01-04 13:37 | disposition other institution (70) ==
LOC: ED 08:58 → MED/SURG 12:29 → ED 12:29
PROVIDERS: Physician Assistant
DX: I63.9 Cerebral infarction, unspecified (principal); E11.9 Type 2 diabetes mellitus without complications; I16.0 Hypertensive urgency; E11.40 Type 2 diabetes mellitus with diabetic neuropathy, unspecified; Z79.4 Long term (current) use of insulin; Z20.822 Contact with and (suspected) exposure to COVID-19
CPT/HCPCS: J2405

== ENCOUNTER → 2021-01-24 | Outpatient (CLI) | payer MEDICARE ==
[~2021-01-24] MED LIST changes: +METOPROLOL SUCC25 M1 PO; +PROBIOTICA100 MILLIO PO; +ZESTRIL10 M1 PO
[2021-01-24 14:24] LABS: ALBUMIN 3.7 g/dL (3.4-4.8)
[2021-01-24 14:25] LABS: POTASSIUM 5.1 mmol/L (3.5-5.1)
[2021-01-24 14:26] LABS: CALCIUM 9.9 mg/dL (8.3-10.5)
[2021-01-24 14:27] LABS: TOTAL PROTEIN 6.7 g/dL (6.2-8.1)
[2021-01-24 14:29] LABS: TOTAL BILIRUBIN 0.5 mg/dL (0.2-1.2)
[2021-01-24 16:17] LABS: BASO # 0.06 (0.02-0.10); EOS % 2.9 % (1.0-5.0); HEMATOCRIT 32.9 % (37.0-47.0); HEMOGLOBIN 10.8 g/dL (12.5-16.0); LYMPH# 1.44 (1.50-4.00); MEAN CELL VOLUME 109 fl (78-100); MEAN CORPUSCULAR HEMOGLOBIN 36 pg (27-31); MEAN CORPUSCULAR HGB CONC 33 g/dL (33-37); MEAN PLATELET VOLUME 11.3 fl (7.4-10.4); MONO # 0.39 (0.20-0.80); NEU # 4.74 (1.40-6.50); PLATELET COUNT 274 K/mm3 (130-400); RED BLOOD COUNT 3.03 M/mm3 (4.10-5.30); RED CELL DISTRIBUTION WIDTH 14.1 % (11.5-14.5); WHITE BLOOD COUNT 6.9 K/mm3 (4.8-10.8)
== END ==
LOC: LAB 13:57
PROVIDERS: Family Medicine
DX: E11.9 Type 2 diabetes mellitus without complications (principal); I10 Essential (primary) hypertension

== ENCOUNTER 2021-02-18 13:17 | Emergency (ER) | payer MEDICARE ==
[~2021-02-18] VITALS: Ht 162.6 cm; Wt 78.8 kg
[2021-02-18 14:19] LABS: ALBUMIN 3.9 g/dL (3.4-4.8); BASO # 0.06 K/mm3 (0.02-0.10); EOS # 0.23 K/mm3 (0.04-0.40); EOS % 2.5 % (1.0-5.0); HEMATOCRIT 32.6 % (37.0-47.0); HEMOGLOBIN 10.8 g/dL (12.5-16.0); MEAN CELL VOLUME 107 fl (78-100); MEAN CORPUSCULAR HEMOGLOBIN 35 pg (27-31); MEAN CORPUSCULAR HGB CONC 33 g/dL (33-37); MEAN PLATELET VOLUME 11.3 fl (7.4-10.4); MONO # 0.56 K/mm3 (0.20-0.80); NEU # 6.99 K/mm3 (1.40-6.50); PLATELET COUNT 257 K/mm3 (130-400); RED BLOOD COUNT 3.06 M/mm3 (4.10-5.30); RED CELL DISTRIBUTION WIDTH 13.3 % (11.5-14.5); WHITE BLOOD COUNT 9.4 K/mm3 (4.8-10.8)
[2021-02-18 14:20] LABS: CALCIUM 10.3 mg/dL (8.3-10.5)
[2021-02-18 14:23] LABS: TOTAL BILIRUBIN 0.4 mg/dL (0.2-1.2)
[2021-02-18 14:45] LABS: PROTHROMBIN TIME 9.8 SECONDS (9.0-12.0)
[2021-02-18 16:25] VITALS: BP 177/76
== END 2021-02-18 16:25 | disposition home or self-care (01) ==
LOC: ED 13:17
PROVIDERS: Physician Assistant
DX: I10 Essential (primary) hypertension (principal); D64.9 Anemia, unspecified; E11.21 Type 2 diabetes mellitus with diabetic nephropathy; F32.A Depression, unspecified; Z79.4 Long term (current) use of insulin; Z79.899 Other long term (current) drug therapy

== ENCOUNTER → 2021-04-14 | Outpatient (CLI) | payer MEDICARE | LOC: RAD 18:44 | DX: M86.172 Other acute osteomyelitis, left ankle and foot (principal); E13.621 Other specified diabetes mellitus with foot ulcer | CPT/HCPCS: A9585 ==

== ENCOUNTER → 2021-05-18 | Outpatient (CLI) | payer MEDICARE | LOC: LAB 14:04 | DX: E11.9 Type 2 diabetes mellitus without complications (principal) ==

== ENCOUNTER → 2021-08-15 | Outpatient (CLI) | payer MEDICARE | LOC: LAB 11:40 | DX: E11.9 Type 2 diabetes mellitus without complications (principal) ==

== ENCOUNTER → 2021-09-09 | Outpatient (CLI) | payer MEDICARE, OTHER ==
[~2021-09-09] MED LIST changes: +AMLODIPINE BESYL5 MG PO; +METOPROLOL SUC100 M1 PO; +TRULICITY1.5 MG/0.5 SC
[2021-09-09 11:25] LABS: BASO # 0.07 K/mm3 (0.02-0.10); EOS # 0.23 K/mm3 (0.04-0.40); EOS % 2.4 % (1.0-5.0); HEMOGLOBIN 11.1 g/dL (12.5-16.0); LYMPH# 1.12 K/mm3 (1.50-4.00); MEAN CELL VOLUME 93 fl (78-100); MEAN CORPUSCULAR HEMOGLOBIN 30 pg (27-31); MEAN CORPUSCULAR HGB CONC 33 g/dL (33-37); MEAN PLATELET VOLUME 10.9 fl (7.4-10.4); MONO # 0.69 K/mm3 (0.20-0.80); NEU # 7.47 K/mm3 (1.40-6.50); PLATELET COUNT 272 K/mm3 (130-400); RED BLOOD COUNT 3.66 M/mm3 (4.10-5.30); RED CELL DISTRIBUTION WIDTH 13.5 % (11.5-14.5); WHITE BLOOD COUNT 9.6 K/mm3 (4.8-10.8)
[2021-09-09 11:37] LABS: ALBUMIN 3.5 g/dL (3.4-4.8)
[2021-09-09 11:38] LABS: POTASSIUM 5.1 mmol/L (3.5-5.1); PROTHROMBIN TIME 9.5 SECONDS (9.0-12.0)
[2021-09-09 11:39] LABS: CALCIUM 9.5 mg/dL (8.3-10.5)
[2021-09-09 11:40] LABS: TOTAL PROTEIN 6.4 g/dL (6.2-8.1)
[2021-09-09 11:42] LABS: TOTAL BILIRUBIN 0.3 mg/dL (0.2-1.2)
[2021-09-09 13:58] LABS: URINE APPEARANCE HAZY; URINE BILIRUBIN NEGATIVE (NEGATIVE); URINE BLOOD TRACE (NEGATIVE); URINE COLOR YELLOW; URINE GLUCOSE 50 mg/dL (NEGATIVE); URINE KETONE NEGATIVE (NEGATIVE); URINE LEUKOCYTE ESTERASE TRACE (NEGATIVE); URINE MUCUS PRESENT (NOT PRESENT); URINE NITRATE NEGATIVE (NEGATIVE); URINE PROTEIN(semi-quant) 3+ (NEGATIVE); URINE UROBILINOGEN NORMAL (NORMAL); URINE WBC 31-50 /hpf (0-3)
== END ==
LOC: RAD 11:00
PROVIDERS: Internal Medicine
DX: Z01.811 Encounter for preprocedural respiratory examination (principal); I63.9 Cerebral infarction, unspecified

== ENCOUNTER 2021-09-11 07:47 | Emergency (ER) | payer MEDICARE ==
[~2021-09-11] VITALS: Wt 81.9 kg
[~2021-09-11 07:47] MED LIST changes: -AMLODIPINE BESYL5 MG PO; -METOPROLOL SUC100 M1 PO; -TRULICITY1.5 MG/0.5 SC
[2021-09-11] MEDS ORDERED: AMLODIPINE BESYL5 MG PO (07:57)
[2021-09-11] MEDS ORDERED: METOPROLOL SUC100 M1 PO (07:57)
[2021-09-11] MEDS ORDERED: TRULICITY1.5 MG/0.5 SC (07:57)
[2021-09-11] MEDS ORDERED: CEFDINIR300 MG PO (07:57)
[2021-09-11 09:31] LABS: BASO # 0.06 K/mm3 (0.02-0.10); EOS # 0.05 K/mm3 (0.04-0.40); EOS % 0.6 % (1.0-5.0); HEMATOCRIT 34.3 % (37.0-47.0); HEMOGLOBIN 11.3 g/dL (12.5-16.0); LYMPH# 0.75 K/mm3 (1.50-4.00); MEAN CELL VOLUME 91 fl (78-100); MEAN CORPUSCULAR HEMOGLOBIN 30 pg (27-31); MEAN CORPUSCULAR HGB CONC 33 g/dL (33-37); MEAN PLATELET VOLUME 10.9 fl (7.4-10.4); MONO # 0.47 K/mm3 (0.20-0.80); NEU # 6.88 K/mm3 (1.40-6.50); PLATELET COUNT 280 K/mm3 (130-400); RED BLOOD COUNT 3.78 M/mm3 (4.10-5.30); RED CELL DISTRIBUTION WIDTH 13.3 % (11.5-14.5); WHITE BLOOD COUNT 8.2 K/mm3 (4.8-10.8)
[2021-09-11 09:38] LABS: POTASSIUM 4.3 mmol/L (3.5-5.1)
[2021-09-11 09:40] LABS: CALCIUM 9.6 mg/dL (8.3-10.5)
[2021-09-11 10:28] LABS: PH-URINE 6.5 (5.0 - 8.0); URINE APPEARANCE CLOUDY; URINE BILIRUBIN NEGATIVE (NEGATIVE); URINE COLOR YELLOW; URINE GLUCOSE 50 mg/dL (NEGATIVE); URINE KETONE 1+ (NEGATIVE); URINE NITRATE POSITIVE (NEGATIVE); URINE PROTEIN(semi-quant) 3+ (NEGATIVE); URINE UROBILINOGEN NORMAL (NORMAL)
[2021-09-11 10:29] LABS: URINE BLOOD TRACE (NEGATIVE); URINE LEUKOCYTE ESTERASE TRACE (NEGATIVE)
[2021-09-11] MEDS ORDERED: MACROBID 100 M100 MG PO (12:18)
[2021-09-11] MEDS ORDERED: ZOFRAN ODT4 MG PO (12:18)
[2021-09-11 12:26] VITALS: BP 169/88
== END 2021-09-11 12:26 | disposition home or self-care (01) ==
LOC: ED 07:47
PROVIDERS: Family Medicine
DX: N39.0 Urinary tract infection, site not specified (principal); M86.679 Other chronic osteomyelitis, unspecified ankle and foot; E11.51 Type 2 diabetes mellitus with diabetic peripheral angiopathy without gangrene; Z79.4 Long term (current) use of insulin

== ENCOUNTER 2021-09-20 12:09 | Emergency (ER) | payer MEDICARE ==
[~2021-09-20] VITALS: Ht 152.4 cm; Wt 81.9 kg
[~2021-09-20 12:09] MED LIST changes: +AMLODIPINE BESYL5 MG PO; +METOPROLOL SUC100 M1 PO; +TRULICITY1.5 MG/0.5 SC
[2021-09-20 12:46] LABS: BASO # 0.08 K/mm3 (0.02-0.10); EOS # 0.16 K/mm3 (0.04-0.40); EOS % 1.7 % (1.0-5.0); HEMATOCRIT 36.1 % (37.0-47.0); HEMOGLOBIN 11.9 g/dL (12.5-16.0); LYMPH# 1.39 K/mm3 (1.50-4.00); MEAN CELL VOLUME 90 fl (78-100); MEAN CORPUSCULAR HEMOGLOBIN 30 pg (27-31); MEAN CORPUSCULAR HGB CONC 33 g/dL (33-37); MEAN PLATELET VOLUME 10.6 fl (7.4-10.4); MONO # 0.63 K/mm3 (0.20-0.80); NEU # 7.36 K/mm3 (1.40-6.50); PLATELET COUNT 311 K/mm3 (130-400); RED BLOOD COUNT 4.01 M/mm3 (4.10-5.30); WHITE BLOOD COUNT 9.6 K/mm3 (4.8-10.8)
[2021-09-20 13:07] LABS: ALBUMIN 3.8 g/dL (3.4-4.8); POTASSIUM 4.4 mmol/L (3.5-5.1)
[2021-09-20 13:08] LABS: CALCIUM 9.9 mg/dL (8.3-10.5)
[2021-09-20 13:11] LABS: TOTAL BILIRUBIN 0.5 mg/dL (0.2-1.2)
[2021-09-20 14:08] LABS: URINE APPEARANCE HAZY; URINE COLOR YELLOW
[2021-09-20 14:09] LABS: URINE BILIRUBIN NEGATIVE (NEGATIVE); URINE BLOOD TRACE (NEGATIVE); URINE GLUCOSE 50 mg/dL (NEGATIVE); URINE KETONE TR (NEGATIVE); URINE LEUKOCYTE ESTERASE NEGATIVE (NEGATIVE); URINE MUCUS PRESENT (NOT PRESENT); URINE NITRATE NEGATIVE (NEGATIVE); URINE PROTEIN(semi-quant) 3+ (NEGATIVE); URINE UROBILINOGEN NORMAL (NORMAL); URINE WBC 0-1 /hpf (0-3)
[2021-09-20 17:30] VITALS: BP 127/67
[2021-09-20] MEDS ORDERED: PROTONIX TR40 M1 PO (18:38)
== END 2021-09-20 19:05 | disposition home or self-care (01) ==
LOC: ED 12:09
PROVIDERS: Physician Assistant
DX: F41.9 Anxiety disorder, unspecified (principal); E11.65 Type 2 diabetes mellitus with hyperglycemia; I10 Essential (primary) hypertension; N39.0 Urinary tract infection, site not specified; E66.9 Obesity, unspecified; Z68.35 Body mass index [BMI] 35.0-35.9, adult
CPT/HCPCS: J7030

== ENCOUNTER → 2021-10-28 | Outpatient (CLI) | payer MEDICARE ==
[2021-10-28 12:06] LABS: POTASSIUM 4.8 mmol/L (3.5-5.1)
[2021-10-28 12:07] LABS: CALCIUM 8.5 mg/dL (8.3-10.5)
== END ==
LOC: LAB 11:40
PROVIDERS: Family Medicine
DX: R73.09 Other abnormal glucose (principal)

== ENCOUNTER → 2021-10-29 | Outpatient (CLI) | payer MEDICARE | LOC: LAB 08:48 | DX: N18.4 Chronic kidney disease, stage 4 (severe) (principal); E78.5 Hyperlipidemia, unspecified ==

== ENCOUNTER → 2021-12-30 | Outpatient (CLI) | payer MEDICARE ==
[2021-12-30 09:54] LABS: BASO # 0.07 K/mm3 (0.02-0.10); EOS # 0.39 K/mm3 (0.04-0.40); EOS % 5.4 % (1.0-5.0); HEMATOCRIT 32.6 % (37.0-47.0); HEMOGLOBIN 10.7 g/dL (12.5-16.0); LYMPH# 1.21 K/mm3 (1.50-4.00); MEAN CELL VOLUME 92 fl (78-100); MEAN CORPUSCULAR HEMOGLOBIN 30 pg (27-31); MEAN CORPUSCULAR HGB CONC 33 g/dL (33-37); MEAN PLATELET VOLUME 11.3 fl (7.4-10.4); MONO # 0.61 K/mm3 (0.20-0.80); NEU # 4.96 K/mm3 (1.40-6.50); PLATELET COUNT 233 K/mm3 (130-400); RED BLOOD COUNT 3.56 M/mm3 (4.10-5.30); RED CELL DISTRIBUTION WIDTH 14.3 % (11.5-14.5); WHITE BLOOD COUNT 7.3 K/mm3 (4.8-10.8)
[2021-12-30 10:00] LABS: ALBUMIN 3.5 g/dL (3.4-4.8)
[2021-12-30 10:01] LABS: POTASSIUM 4.4 mmol/L (3.5-5.1)
[2021-12-30 10:02] LABS: CALCIUM 9.2 mg/dL (8.3-10.5)
[2021-12-30 10:03] LABS: TOTAL PROTEIN 6.2 g/dL (6.2-8.1)
[2021-12-30 10:05] LABS: TOTAL BILIRUBIN 0.3 mg/dL (0.2-1.2)
== END ==
LOC: LAB 09:23
PROVIDERS: Internal Medicine Nephrology
DX: N18.4 Chronic kidney disease, stage 4 (severe) (principal)

== ENCOUNTER → 2022-01-02 | Outpatient (CLI) | payer MEDICARE | LOC: LAB 08:16 | PROVIDERS: Internal Medicine Nephrology | DX: N18.4 Chronic kidney disease, stage 4 (severe) (principal) ==

== ENCOUNTER → 2022-01-03 | Outpatient (CLI) | payer MEDICARE | LOC: RAD 07:00 | DX: N18.4 Chronic kidney disease, stage 4 (severe) (principal) ==

== ENCOUNTER → 2022-01-26 | Outpatient (CLI) | payer MEDICARE | LOC: RAD 15:46 | DX: G93.89 Other specified disorders of brain (principal); G31.9 Degenerative disease of nervous system, unspecified; H53.9 Unspecified visual disturbance; Z86.73 Personal history of transient ischemic attack (TIA), and cerebral infarction without residual deficits ==

== ENCOUNTER → 2022-03-15 | Outpatient (CLI) | payer MEDICARE ==
[~2022-03-15] MED LIST changes: +ACETAMINOPHEN-H1 TA2 PO; +ACIDOPHILUS1 EAC1 PO; +ADVIL 200MG TA200 MG PO; +CEPHALEXIN500 M1 PO; +FARXIGA10 MG PO; +KAPSPARGO SPRI100 MG PO; +NOVOLIN R100 UNIT/1 SQ; +PANTOPRAZOLE SO40 MG PO; +ROCALTROL0.25 MC1 PO; +TYLENOL 325MG325 MG PO; +ZESTRIL20 M1 PO
[2022-03-15 13:11] LABS: URINE APPEARANCE CLEAR; URINE COLOR YELLOW
[2022-03-15 13:12] LABS: URINE BILIRUBIN NEGATIVE (NEGATIVE); URINE BLOOD 50 ery/uL (NEGATIVE); URINE KETONE NEGATIVE (NEGATIVE); URINE LEUKOCYTE ESTERASE NEGATIVE (NEGATIVE); URINE MUCUS PRESENT (NOT PRESENT); URINE NITRATE NEGATIVE (NEGATIVE); URINE PROTEIN(semi-quant) 3+ (NEGATIVE); URINE UROBILINOGEN NORMAL (NORMAL); URINE WBC 0-1 /hpf (0-3)
== END ==
LOC: LAB 11:02
PROVIDERS: Family Medicine
DX: N39.0 Urinary tract infection, site not specified (principal); R82.90 Unspecified abnormal findings in urine; B37.2 Candidiasis of skin and nail

== ENCOUNTER 2022-05-31 11:52 | Emergency (ER) | payer MEDICARE ==
[~2022-05-31] VITALS: Ht 157.5 cm; Wt 79.8 kg
[~2022-05-31 11:52] MED LIST changes: +DIFLUCAN150 M1 PO; +FERROUS SULFAT325 M4 PO
[2022-05-31] MEDS ORDERED: METOPROLOL SUC100 M1 PO (12:16)
[2022-05-31 12:35] LABS: BASO # 0.02 K/mm3 (0.02-0.10); EOS # 0.04 K/mm3 (0.04-0.40); EOS % 0.4 % (1.0-5.0); HEMOGLOBIN 10.9 g/dL (12.5-16.0); LYMPH# 0.91 K/mm3 (1.50-4.00); MEAN CELL VOLUME 90 fl (78-100); MEAN CORPUSCULAR HEMOGLOBIN 30 pg (27-31); MEAN CORPUSCULAR HGB CONC 33 g/dL (33-37); MEAN PLATELET VOLUME 11.2 fl (7.4-10.4); MONO # 0.56 K/mm3 (0.20-0.80); NEU # 7.96 K/mm3 (1.40-6.50); PLATELET COUNT 271 K/mm3 (130-400); RED BLOOD COUNT 3.66 M/mm3 (4.10-5.30); RED CELL DISTRIBUTION WIDTH 14.8 % (11.5-14.5); WHITE BLOOD COUNT 9.5 K/mm3 (4.8-10.8)
[2022-05-31 12:39] LABS: ALBUMIN 3.4 g/dL (3.4-4.8); POTASSIUM 4.5 mmol/L (3.5-5.1)
[2022-05-31 12:40] LABS: CALCIUM 9.8 mg/dL (8.3-10.5)
[2022-05-31 12:43] LABS: TOTAL BILIRUBIN 0.5 mg/dL (0.2-1.2)
[2022-05-31] MEDS ORDERED: ZOFRAN ODT4 MG PO ×2 (13:23→14:14)
[2022-05-31 14:15] VITALS: BP 185/99
== END 2022-05-31 14:25 | disposition home or self-care (01) ==
LOC: ED 11:52
PROVIDERS: Family Medicine
DX: R11.2 Nausea with vomiting, unspecified (principal); E11.69 Type 2 diabetes mellitus with other specified complication; E11.65 Type 2 diabetes mellitus with hyperglycemia; M86.9 Osteomyelitis, unspecified; I12.9 Hypertensive chronic kidney disease with stage 1 through stage 4 chronic kidney disease, or unspecified chronic kidney disease; E11.22 Type 2 diabetes mellitus with diabetic chronic kidney disease; N18.4 Chronic kidney disease, stage 4 (severe); E66.9 Obesity, unspecified; Z68.32 Body mass index [BMI] 32.0-32.9, adult
CPT/HCPCS: J2405; J7030

== ENCOUNTER → 2022-06-06 | Outpatient (CLI) | payer MEDICARE | LOC: VAS 05-23 13:00 → RAD 05-23 13:00 → VAS 05-23 14:01 → LAB 05-23 14:01 → VAS 10:53 | DX: R06.09 Other forms of dyspnea (principal) ==

== ENCOUNTER → 2022-06-12 | Outpatient (CLI) | payer MEDICARE | LOC: LAB 13:05 | DX: M14.672 Charcot's joint, left ankle and foot (principal); L03.119 Cellulitis of unspecified part of limb ==

== ENCOUNTER → 2022-06-22 | Outpatient (CLI) | payer MEDICARE | LOC: LAB 12:05 | DX: M14.679 Charcot's joint, unspecified ankle and foot (principal) ==

== ENCOUNTER → 2022-06-26 | Outpatient (CLI) | payer MEDICARE ==
[2022-06-26 13:32] LABS: HEMATOCRIT 32.1 % (37.0-47.0); HEMOGLOBIN 10.7 g/dL (12.5-16.0)
[2022-06-26 13:40] LABS: ALBUMIN 3.3 g/dL (3.4-4.8)
[2022-06-26 13:41] LABS: POTASSIUM 4.8 mmol/L (3.5-5.1)
[2022-06-26 13:42] LABS: CALCIUM 9.3 mg/dL (8.3-10.5)
[2022-06-28 09:26] LABS: BASO # 0.08 K/mm3 (0.02-0.10); EOS % 2.2 % (1.0-5.0); LYMPH# 1.19 K/mm3 (1.50-4.00); MEAN CELL VOLUME 101 fl (78-100); MEAN CORPUSCULAR HEMOGLOBIN 30 pg (27-31); MEAN CORPUSCULAR HGB CONC 29 g/dL (33-37); MEAN PLATELET VOLUME 12.5 fl (7.4-10.4); MONO # 0.39 K/mm3 (0.20-0.80); NEU # 7.16 K/mm3 (1.40-6.50); PLATELET COUNT 335 K/mm3 (130-400); RED BLOOD COUNT 3.62 M/mm3 (4.10-5.30); RED CELL DISTRIBUTION WIDTH 15.5 % (11.5-14.5)
== END ==
LOC: LAB 13:10
PROVIDERS: Internal Medicine Nephrology
DX: I12.9 Hypertensive chronic kidney disease with stage 1 through stage 4 chronic kidney disease, or unspecified chronic kidney disease (principal); N18.4 Chronic kidney disease, stage 4 (severe); N25.81 Secondary hyperparathyroidism of renal origin

== ENCOUNTER → 2022-06-28 | Outpatient (CLI) | payer MEDICARE ==
[2022-06-29 23:41] LABS: FOLATE (FOLIC ACID) 8.8 ng/mL (2.0-20.0)
== END ==
LOC: LAB 10:39
PROVIDERS: Family Medicine
DX: M14.679 Charcot's joint, unspecified ankle and foot (principal); L03.119 Cellulitis of unspecified part of limb; E11.8 Type 2 diabetes mellitus with unspecified complications; M14.671 Charcot's joint, right ankle and foot; E11.610 Type 2 diabetes mellitus with diabetic neuropathic arthropathy

== ENCOUNTER 2023-06-05 13:37 | Emergency (ER) | payer MEDICARE ==
[~2023-06-05] VITALS: Wt 70.9 kg
[~2023-06-05 13:37] MED LIST changes: +ANTIVERT12.5 M1 PO; +BENZONATATE200 MG PO; +CALCITRIOL PO; +CALCIUM 600 MG-1 TAB PO; +CLOPIDOGREL PO; +FOLIC ACID1 MG PO; +FUROSEMIDE20 MG PO; +HUMULIN R U-100 U/ML SQ; +NATURAL IRON65 MG PO; +NEURONTIN300 MG/CAP PO; +OXYCODONE HYDROC5 M1 PO; +SODIUM BIC650 MG/TAB PO; +TRULICITY0.75 MG/0. SC; +VIBRAMYCIN HYC100 MG PO; +ZITHROMAX500 M2 PO; +ZOLOFT25 M1 PO; +[UNRECOGNIZED DRUG - OTHER] TP
[2023-06-05 14:04] LABS: BASO # 0.02 K/mm3 (0.02-0.10); HEMOGLOBIN 12.7 g/dL (12.5-16.0); LYMPH# 0.73 K/mm3 (1.50-4.00); MEAN CELL VOLUME 84 fl (78-100); MEAN CORPUSCULAR HEMOGLOBIN 28 pg (27-31); MEAN CORPUSCULAR HGB CONC 33 g/dL (33-37); MEAN PLATELET VOLUME 12.6 fl (7.4-10.4); MONO # 0.49 K/mm3 (0.20-0.80); NEU # 10.07 K/mm3 (1.40-6.50); PLATELET COUNT 217 K/mm3 (130-400); RED BLOOD COUNT 4.53 M/mm3 (4.10-5.30); RED CELL DISTRIBUTION WIDTH 12.6 % (11.5-14.5); WHITE BLOOD COUNT 11.3 K/mm3 (4.8-10.8)
[2023-06-05 14:10] LABS: ALBUMIN 3.8 g/dL (3.4-4.8); SODIUM 140 mmol/L (136-145)
[2023-06-05 14:11] LABS: CALCIUM 9.6 mg/dL (8.3-10.5)
[2023-06-05 14:12] LABS: GLUCOSE 277 mg/dL (65-105); TOTAL PROTEIN 6.4 g/dL (6.2-8.1)
[2023-06-05 14:13] LABS: CARBON DIOXIDE 19 mmol/L (23-31)
[2023-06-05 14:14] LABS: TOTAL BILIRUBIN 0.5 mg/dL (0.2-1.2)
[2023-06-05 14:17] LABS: AST-SGOT 10 U/L (5-34)
[2023-06-05 14:19] LABS: ALT/SGPT 11 U/L (0-55)
[2023-06-05 14:24] LABS: TROPONIN-I < 0.030 ng/mL (0.00-0.033)
[2023-06-05] MEDS ORDERED: ZOFRAN ODT4 MG PO (16:33)
[2023-06-05 18:04] VITALS: BP 153/100
== END 2023-06-05 16:45 | disposition home or self-care (01) ==
LOC: ED 13:37
PROVIDERS: Physician Assistant
DX: R11.2 Nausea with vomiting, unspecified (principal); I10 Essential (primary) hypertension; Z79.899 Other long term (current) drug therapy; Z79.4 Long term (current) use of insulin
CPT/HCPCS: J2550; J7040

== ENCOUNTER → 2023-06-13 | Outpatient (CLI) | payer MEDICARE | LOC: LAB 10:35 | PROVIDERS: Family Medicine | DX: E11.22 Type 2 diabetes mellitus with diabetic chronic kidney disease (principal); N18.4 Chronic kidney disease, stage 4 (severe) ==

== ENCOUNTER → 2023-11-01 | Outpatient (CLI) | payer MEDICARE ==
[2023-11-01 08:54] LABS: CALCIUM 9.9 mg/dL (8.3-10.5)
== END ==
LOC: LAB 08:25
PROVIDERS: Family Medicine
DX: E11.22 Type 2 diabetes mellitus with diabetic chronic kidney disease (principal); N18.9 Chronic kidney disease, unspecified

== ENCOUNTER → 2023-11-22 | Outpatient (CLI) | payer MEDICARE ==
[2023-11-22 17:35] LABS: CALCIUM 9.6 mg/dL (8.3-10.5)
== END ==
LOC: LAB 16:55 → AMSURD 16:55
PROVIDERS: Family Medicine
DX: I95.1 Orthostatic hypotension (principal)

== ENCOUNTER 2024-01-28 19:27 | Emergency (ER) | payer MEDICARE ==
[2024-01-28] MEDS ORDERED: NS 500 ML IV SCH (19:45)
[2024-01-28 20:14] VITALS: BP 158/100
[2024-01-28 20:20] LABS: ALBUMIN 3.2 g/dL (3.4-4.8); BASO # 0.02 K/mm3 (0.02-0.10); EOS % 2.7 % (1.0-5.0); HEMATOCRIT 32.5 % (37.0-47.0); MEAN CELL VOLUME 84 fl (78-100); MEAN CORPUSCULAR HEMOGLOBIN 29 pg (27-31); MEAN CORPUSCULAR HGB CONC 34 g/dL (33-37); MEAN PLATELET VOLUME 12.5 fl (7.4-10.4); MONO # 0.62 K/mm3 (0.20-0.80); NEU # 5.18 K/mm3 (1.40-6.50); PLATELET COUNT 156 K/mm3 (130-400); RED BLOOD COUNT 3.85 M/mm3 (4.10-5.30); RED CELL DISTRIBUTION WIDTH 12.8 % (11.5-14.5); SODIUM 138 mmol/L (136-145); WHITE BLOOD COUNT 7.5 K/mm3 (4.8-10.8)
[2024-01-28 20:21] LABS: CALCIUM 9.2 mg/dL (8.3-10.5)
[2024-01-28 20:23] LABS: GLUCOSE 319 mg/dL (65-105); TOTAL PROTEIN 5.5 g/dL (6.2-8.1)
[2024-01-28 20:24] LABS: CARBON DIOXIDE 21 mmol/L (23-31); TOTAL BILIRUBIN 0.2 mg/dL (0.2-1.2)
[2024-01-28 20:28] LABS: AST-SGOT 12 U/L (5-34)
[2024-01-28 20:29] LABS: ALT/SGPT 10 U/L (0-55)
[2024-01-28 20:36] LABS: TROPONIN-I < 0.030 ng/mL (0.00-0.033)
[2024-01-28 20:53] LABS: PH-URINE 5.5 (5.0 - 8.0); URINE APPEARANCE CLOUDY (CLEAR); URINE BILIRUBIN NEGATIVE (NEGATIVE); URINE BLOOD TRACE-INTACT (NEGATIVE); URINE COLOR YELLOW (YELLOW); URINE GLUCOSE 2+ (NEGATIVE); URINE KETONE NEGATIVE (NEGATIVE); URINE LEUKOCYTE ESTERASE 1+ (NEGATIVE); URINE NITRATE NEGATIVE (NEGATIVE); URINE PROTEIN(semi-quant) 3+ (NEGATIVE); URINE WBC >50 /hpf (0-3)
[2024-01-28] MEDS ORDERED: CEFDINIR300 MG PO (21:07)
[2024-01-28] MEDS ORDERED: cefTRIAXone 1 G in Water For Injection,Sterile 10 ML IV ONE (21:15)
== END 2024-01-28 22:35 | disposition home or self-care (01) ==
LOC: ED 19:27
PROVIDERS: Physician Assistant
DX: I95.1 Orthostatic hypotension (principal)
CPT/HCPCS: J0696; J7040

== ENCOUNTER → 2024-02-13 | Outpatient (CLI) | payer MEDICARE ==
[2024-02-13 15:22] LABS: CALCIUM 9.4 mg/dL (8.3-10.5)
== END ==
LOC: LAB 14:16 → RAD 14:16
PROVIDERS: Family Medicine
DX: M21.6X1 Other acquired deformities of right foot (principal); S99.911A Unspecified injury of right ankle, initial encounter; S99.921A Unspecified injury of right foot, initial encounter; E11.22 Type 2 diabetes mellitus with diabetic chronic kidney disease; N18.4 Chronic kidney disease, stage 4 (severe); Z98.890 Other specified postprocedural states; Z87.81 Personal history of (healed) traumatic fracture

== ENCOUNTER 2024-02-18 15:48 | Observation (INO) | payer MEDICARE ==
[~2024-02-18] VITALS: Ht 160 cm; Wt 71.4 kg
[2024-02-18] MEDS ORDERED: NS 500 ML IV SCH (16:15)
[2024-02-18 16:54] LABS: HEMATOCRIT 35.8 % (37.0-47.0); MEAN CELL VOLUME 84 fl (78-100); MEAN CORPUSCULAR HEMOGLOBIN 28 pg (27-31); MEAN CORPUSCULAR HGB CONC 34 g/dL (33-37); MEAN PLATELET VOLUME 11.8 fl (7.4-10.4); PLATELET COUNT 227 K/mm3 (130-400); RED BLOOD COUNT 4.25 M/mm3 (4.10-5.30); RED CELL DISTRIBUTION WIDTH 12.8 % (11.5-14.5); WHITE BLOOD COUNT 9.5 K/mm3 (4.8-10.8)
[2024-02-18 16:57] LABS: ALBUMIN 3.9 g/dL (3.4-4.8)
[2024-02-18 16:58] LABS: CALCIUM 9.6 mg/dL (8.3-10.5)
[2024-02-18 16:59] LABS: TOTAL PROTEIN 6.8 g/dL (6.2-8.1)
[2024-02-18 17:01] LABS: TOTAL BILIRUBIN 0.5 mg/dL (0.2-1.2)
[2024-02-18 17:19] LABS: LYMPHOCYTE 4 % (20-51); MONOCYTE 4 % (3-10); NEUTROPHILS 92 % (42-75)
[2024-02-18] MEDS ORDERED: TYLENOL EXTRA500 M2 PO (18:07)
[2024-02-18] MEDS ORDERED: Acetaminophen 500 MG TAB PO PRN (18:15)
[2024-02-18] MEDS ORDERED: Polyethylene Glycol 3350 Powder 17 GM PACKET PO PRN (18:15)
[2024-02-18] MEDS ORDERED: cefTRIAXone 1 G in Water For Injection,Sterile 10 ML IV SCH (18:15)
[2024-02-18] MEDS ORDERED: BENZONATATE100 M2 PO (18:15)
[2024-02-18] MEDS ORDERED: ZESTRIL5 M1 PO (18:23)
[2024-02-18] MEDS ORDERED: hydrALAZINE 20 MG/ML 1 ML VIAL IV PRN (19:00)
[2024-02-18] MEDS ORDERED: NS 1,000 ML IV SCH (19:00)
[2024-02-18] MEDS ORDERED: Glucagon 1 MG VIAL IM PRN (19:15)
[2024-02-18] MEDS ORDERED: Dextrose 50% Water 25 GM/50 ML SYRINGE IV PRN (19:15)
[2024-02-18] MEDS ORDERED: Dextrose (Glucose) 15 GM (4 x 3.75 GM) Chewable TAB PACK PO PRN (19:15)
[2024-02-18 19:40] VITALS: BP 238/120; BP_SYST 128
[2024-02-18 20:09] VITALS: BP 196/105
[2024-02-18] MEDS ORDERED: Ondansetron 4 MG/2 ML VIAL IV PRN (20:15)
[2024-02-18 20:16] VITALS: BP 190/105
[2024-02-18 20:30] VITALS: BP 192/100
[2024-02-18 20:35] VITALS: BP 169/83
[2024-02-18] MEDS ORDERED: Insulin Glargine-ygfn (Lantus) SQ SCH (21:00)
[2024-02-18] MEDS ORDERED: Gabapentin 300 MG CAP PO SCH (21:00)
[2024-02-18 23:36] VITALS: BP 166/83; BP 186/83
[2024-02-19] VITALS (7 sets, daily range): BP systolic 127–199; BP diastolic 66–92
[2024-02-19 07:09] LABS: EOS # 0.02 K/mm3 (0.04-0.40); EOS % 0.2 % (1.0-5.0); HEMATOCRIT 32.4 % (37.0-47.0); HEMOGLOBIN 11.1 g/dL (12.5-16.0); MEAN CELL VOLUME 84 fl (78-100); MEAN CORPUSCULAR HEMOGLOBIN 29 pg (27-31); MEAN CORPUSCULAR HGB CONC 34 g/dL (33-37); MEAN PLATELET VOLUME 11.5 fl (7.4-10.4); NEU # 8.64 K/mm3 (1.40-6.50); PLATELET COUNT 216 K/mm3 (130-400); RED BLOOD COUNT 3.84 M/mm3 (4.10-5.30); WHITE BLOOD COUNT 10.1 K/mm3 (4.8-10.8)
[2024-02-19 07:15] LABS: ALBUMIN 3.4 g/dL (3.4-4.8)
[2024-02-19 07:16] LABS: CALCIUM 8.7 mg/dL (8.3-10.5)
[2024-02-19 07:18] LABS: TOTAL PROTEIN 5.8 g/dL (6.2-8.1)
[2024-02-19 07:19] LABS: TOTAL BILIRUBIN 0.3 mg/dL (0.2-1.2)
[2024-02-19] MEDS ORDERED: Ferrous Sulfate 325 MG TAB PO SCH (08:00)
[2024-02-19] MEDS ORDERED: Calcitriol 0.25 MCG CAP PO SCH (09:00)
[2024-02-19] MEDS ORDERED: Sertraline 50 MG TAB PO SCH (09:00)
[2024-02-19] MEDS ORDERED: Influenza Virus Vaccine, Hi-Dose Triv '24-25 (65 YR+) 0.5 ML SYRINGE IM SCH (09:00)
[2024-02-19] MEDS ORDERED: Sodium Bicarbonate 650 MG TAB PO SCH (09:00)
[2024-02-19] MEDS ORDERED: Clopidogrel 75 MG TAB PO SCH (09:00)
[2024-02-19] MEDS ORDERED: Folic Acid 1 MG TAB PO SCH (09:00)
[2024-02-19] MEDS ORDERED: Insulin Lispro (HumaLOG) SQ SCH ×3 (12:00→17:17)
[2024-02-20 03:32] VITALS: BP 107/58
[2024-02-20 07:00] VITALS: BP 137/77
[2024-02-20] MEDS ORDERED: Influenza Virus Vaccine, Hi-Dose Triv '24-25 (65 YR+) 0.5 ML SYRINGE IM SCH (09:00)
[2024-02-20 11:30] VITALS: BP 100/64
[2024-02-20 13:12] LABS: ALBUMIN 3.4 g/dL (3.4-4.8)
[2024-02-20 13:14] LABS: CALCIUM 8.7 mg/dL (8.3-10.5)
== END 2024-02-20 13:14 | disposition home or self-care (01) ==
LOC: ED 15:48 → MED/SURG 17:55
PROVIDERS: Physician Assistant; ADMIT Family Medicine
DX: A08.4 Viral intestinal infection, unspecified (principal); L03.90 Cellulitis, unspecified; E11.22 Type 2 diabetes mellitus with diabetic chronic kidney disease; I12.9 Hypertensive chronic kidney disease with stage 1 through stage 4 chronic kidney disease, or unspecified chronic kidney disease; N18.4 Chronic kidney disease, stage 4 (severe); N17.9 Acute kidney failure, unspecified; D63.1 Anemia in chronic kidney disease; I25.10 Atherosclerotic heart disease of native coronary artery without angina pectoris; R53.1 Weakness; Z79.4 Long term (current) use of insulin; Z91.199 Patient's noncompliance with other medical treatment and regimen due to unspecified reason; Z79.82 Long term (current) use of aspirin; Z79.02 Long term (current) use of antithrombotics/antiplatelets; Z79.899 Other long term (current) drug therapy; Z89.422 Acquired absence of other left toe(s); Z79.85 Long-term (current) use of injectable non-insulin antidiabetic drugs
CPT/HCPCS: G0378; J0360; J0696; J1815; J2405; J2765; J7030; J7040

== ENCOUNTER 2024-03-30 08:07 | Emergency (ER) | payer MEDICARE ==
[~2024-03-30] VITALS: Ht 160 cm; Wt 71.4 kg
[~2024-03-30 08:07] MED LIST changes: +BENZONATATE100 M2 PO; +TYLENOL EXTRA500 M2 PO; +ZESTRIL5 M1 PO
[2024-03-30 08:19] VITALS: BP 177/95
[2024-03-30] MEDS ORDERED: Ondansetron 4 MG/2 ML VIAL IV ONE (08:45)
[2024-03-30] MEDS ORDERED: NS 500 ML IV SCH ×2 (08:45→10:00)
[2024-03-30 09:01] LABS: BASO # 0.03 K/mm3 (0.02-0.10); EOS # 0.03 K/mm3 (0.04-0.40); EOS % 0.4 % (1.0-5.0); HEMATOCRIT 34.6 % (37.0-47.0); HEMOGLOBIN 11.7 g/dL (12.5-16.0); LYMPH# 0.68 K/mm3 (1.50-4.00); MEAN CELL VOLUME 86 fl (78-100); MEAN CORPUSCULAR HEMOGLOBIN 29 pg (27-31); MEAN CORPUSCULAR HGB CONC 34 g/dL (33-37); MEAN PLATELET VOLUME 12.4 fl (7.4-10.4); MONO # 0.39 K/mm3 (0.20-0.80); NEU # 6.71 K/mm3 (1.40-6.50); PLATELET COUNT 161 K/mm3 (130-400); RED BLOOD COUNT 4.04 M/mm3 (4.10-5.30); RED CELL DISTRIBUTION WIDTH 12.9 % (11.5-14.5); WHITE BLOOD COUNT 7.9 K/mm3 (4.8-10.8)
[2024-03-30 09:10] LABS: ALBUMIN 3.5 g/dL (3.4-4.8)
[2024-03-30 09:11] LABS: CALCIUM 9.4 mg/dL (8.3-10.5)
[2024-03-30 09:14] LABS: TOTAL BILIRUBIN 0.6 mg/dL (0.2-1.2)
[2024-03-30] MEDS ORDERED: ZOFRAN ODT4 MG PO (10:11)
== END 2024-03-30 10:39 | disposition home or self-care (01) ==
LOC: ED 08:07
PROVIDERS: Physician Assistant
DX: A08.4 Viral intestinal infection, unspecified (principal); E11.65 Type 2 diabetes mellitus with hyperglycemia; E11.22 Type 2 diabetes mellitus with diabetic chronic kidney disease; N18.4 Chronic kidney disease, stage 4 (severe); E11.42 Type 2 diabetes mellitus with diabetic polyneuropathy; Z89.422 Acquired absence of other left toe(s); Z79.82 Long term (current) use of aspirin; Z79.84 Long term (current) use of oral hypoglycemic drugs; Z79.4 Long term (current) use of insulin; Z79.02 Long term (current) use of antithrombotics/antiplatelets
CPT/HCPCS: J2405; J7040

== ENCOUNTER 2024-03-31 13:45 | Emergency (ER) | payer MEDICARE ==
[~2024-03-31] VITALS: Ht 160 cm; Wt 71.4 kg
[2024-03-31] MEDS ORDERED: Metoprolol Tartrate 1 MG/ML 5 ML VIAL IV ONE (15:00)
[2024-03-31] MEDS ORDERED: Lisinopril 5 MG TAB PO ONE (15:00)
[2024-03-31] MEDS ORDERED: Ondansetron 4 MG/2 ML VIAL IV ONE (15:00)
[2024-03-31 15:15] LABS: HEMATOCRIT 34.8 % (37.0-47.0); HEMOGLOBIN 11.5 g/dL (12.5-16.0); MEAN PLATELET VOLUME 11.8 fl (7.4-10.4); RED BLOOD COUNT 4.05 M/mm3 (4.10-5.30); RED CELL DISTRIBUTION WIDTH 12.7 % (11.5-14.5); WHITE BLOOD COUNT 8.5 K/mm3 (4.8-10.8)
[2024-03-31 15:27] LABS: CALCIUM 9.3 mg/dL (8.3-10.5)
[2024-03-31] MEDS ORDERED: NS 1,000 ML IV SCH (16:00)
[2024-03-31] MEDS ORDERED: Polyethylene Glycol 3350 Powder 17 GM PACKET PO ONE (16:00)
[2024-03-31] MEDS ORDERED: Metoprolol Tartrate 50 MG TAB PO ONE (17:45)
[2024-03-31] MEDS ORDERED: Metoprolol Tartrate 25 MG TAB PO ONE (17:45)
[2024-03-31] MEDS ORDERED: hydrALAZINE 20 MG/ML 1 ML VIAL IV ONE (18:00)
[2024-03-31 19:00] VITALS: BP 171/87
== END 2024-03-31 19:18 | disposition home or self-care (01) ==
LOC: ED 13:45
PROVIDERS: Family Medicine
DX: K59.00 Constipation, unspecified (principal); E86.0 Dehydration; R11.2 Nausea with vomiting, unspecified; E66.9 Obesity, unspecified; Z68.27 Body mass index [BMI] 27.0-27.9, adult
CPT/HCPCS: J0360; J2405; J7030; J7120

== ENCOUNTER 2024-04-02 13:17 | Inpatient (IN) | payer MEDICARE ==
[2024-04-02 13:30] VITALS: BP 197/112
[2024-04-02] MEDS ORDERED: Naloxone 0.4 MG/ML VIAL IV PRN (13:30)
[2024-04-02] MEDS ORDERED: Acetaminophen 325 MG TAB PO PRN (13:30)
[2024-04-02] MEDS ORDERED: oxyCODONE 5 MG TAB PO PRN (13:30)
[2024-04-02] MEDS ORDERED: Docusate Sodium 100 MG CAP PO SCH (13:31)
[2024-04-02 13:44] LABS: BASO # 0.02 K/mm3 (0.02-0.10); EOS # 0.02 K/mm3 (0.04-0.40); EOS % 0.2 % (1.0-5.0); HEMATOCRIT 37.9 % (37.0-47.0); HEMOGLOBIN 12.9 g/dL (12.5-16.0); LYMPH# 1.05 K/mm3 (1.50-4.00); MEAN CELL VOLUME 84 fl (78-100); MEAN CORPUSCULAR HEMOGLOBIN 28 pg (27-31); MEAN CORPUSCULAR HGB CONC 34 g/dL (33-37); MEAN PLATELET VOLUME 11.6 fl (7.4-10.4); MONO # 0.59 K/mm3 (0.20-0.80); NEU # 8.33 K/mm3 (1.40-6.50); PLATELET COUNT 185 K/mm3 (130-400); RED BLOOD COUNT 4.54 M/mm3 (4.10-5.30); RED CELL DISTRIBUTION WIDTH 12.8 % (11.5-14.5)
[2024-04-02] MEDS ORDERED: Ondansetron 4 MG/2 ML VIAL IV PRN (13:45)
[2024-04-02] MEDS ORDERED: hydrALAZINE 20 MG/ML 1 ML VIAL IV PRN (13:45)
[2024-04-02] MEDS ORDERED: Acetaminophen 500 MG TAB PO SCH (14:20)
[2024-04-02 14:43] LABS: ALBUMIN 3.9 g/dL (3.4-4.8)
[2024-04-02 14:44] LABS: SODIUM 137 mmol/L (136-145)
[2024-04-02 14:45] LABS: CALCIUM 9.7 mg/dL (8.3-10.5)
[2024-04-02 14:46] LABS: GLUCOSE 204 mg/dL (65-105); TOTAL PROTEIN 6.7 g/dL (6.2-8.1)
[2024-04-02 14:47] LABS: CARBON DIOXIDE 21 mmol/L (23-31)
[2024-04-02 14:48] LABS: TOTAL BILIRUBIN 0.8 mg/dL (0.2-1.2)
[2024-04-02 14:51] LABS: AST-SGOT 13 U/L (5-34)
[2024-04-02 14:53] LABS: ALT/SGPT 10 U/L (0-55)
[2024-04-02 15:02] LABS: TROPONIN-I < 0.030 ng/mL (0.00-0.033)
[2024-04-02 16:09] VITALS: BP 149/81
[2024-04-02] MEDS ORDERED: Acetaminophen 500 MG TAB PO PRN (17:00)
[2024-04-02] MEDS ORDERED: Insulin Lispro (HumaLOG) SQ SCH (17:00)
[2024-04-02 19:15] VITALS: BP 161/77
[2024-04-02 19:25] LABS: URINE APPEARANCE CLOUDY (CLEAR); URINE COLOR YELLOW (YELLOW)
[2024-04-02 19:26] LABS: PH-URINE 5.5 (5.0 - 8.0); URINE BILIRUBIN 1+ (NEGATIVE); URINE BLOOD 1+ (NEGATIVE); URINE GLUCOSE TRACE (NEGATIVE); URINE KETONE 1+ (NEGATIVE); URINE LEUKOCYTE ESTERASE TRACE (NEGATIVE); URINE NITRATE NEGATIVE (NEGATIVE); URINE PROTEIN(semi-quant) 3+ (NEGATIVE)
[2024-04-02 19:34] LABS: URINE WBC >50 /hpf (0-3)
--- NOTE | 2024-04-02 20:00 | NUR ---
Patient resting in bed. Alert and oriented x 4. Denies pain. Affect flat. HS meds along with insulin all reviewed and given. SCD's on.
[2024-04-02] MEDS ORDERED: Gabapentin 300 MG CAP PO SCH (21:00)
[2024-04-02] MEDS ORDERED: Insulin Glargine-ygfn (Lantus) SQ SCH (21:00)
[2024-04-02] MEDS ORDERED: Lisinopril 5 MG TAB PO SCH (21:00)
[2024-04-02] MEDS ORDERED: NS 1,000 ML IV SCH (22:30)
[2024-04-02 23:47] VITALS: BP 110/66
--- NOTE | 2024-04-03 03:01 | NUR ---
Patient has been resting with eyes closed. Respirations with ease.
[2024-04-03 03:50] VITALS: BP 103/61
--- NOTE | 2024-04-03 05:15 | NUR ---
Patient reports "feels good to get good nights sleep".
[2024-04-03 06:43] LABS: BASO # 0.03 K/mm3 (0.02-0.10); EOS # 0.07 K/mm3 (0.04-0.40); EOS % 0.9 % (1.0-5.0); HEMATOCRIT 30.8 % (37.0-47.0); LYMPH# 1.69 K/mm3 (1.50-4.00); MEAN CELL VOLUME 87 fl (78-100); MEAN CORPUSCULAR HEMOGLOBIN 29 pg (27-31); MEAN CORPUSCULAR HGB CONC 33 g/dL (33-37); MEAN PLATELET VOLUME 11.9 fl (7.4-10.4); MONO # 0.61 K/mm3 (0.20-0.80); NEU # 5.55 K/mm3 (1.40-6.50); PLATELET COUNT 180 K/mm3 (130-400); RED BLOOD COUNT 3.56 M/mm3 (4.10-5.30); RED CELL DISTRIBUTION WIDTH 13.1 % (11.5-14.5)
[2024-04-03 06:54] LABS: CALCIUM 8.2 mg/dL (8.3-10.5)
[2024-04-03 06:57] LABS: HEMOGLOBIN 10.2 g/dL (12.5-16.0)
[2024-04-03 06:58] LABS: TOTAL BILIRUBIN 0.4 mg/dL (0.2-1.2)
[2024-04-03 08:41] VITALS: BP 103/64
[2024-04-03] MEDS ORDERED: Sodium Bicarbonate 650 MG TAB PO SCH (09:00)
[2024-04-03] MEDS ORDERED: Folic Acid 1 MG TAB PO SCH (09:00)
[2024-04-03] MEDS ORDERED: Calcitriol 0.25 MCG CAP PO SCH (09:00)
[2024-04-03] MEDS ORDERED: Ferrous Sulfate 325 MG TAB PO SCH ×2 (09:00)
[2024-04-03] MEDS ORDERED: Sertraline 50 MG TAB PO SCH (09:00)
[2024-04-03] MEDS ORDERED: Clopidogrel 75 MG TAB PO SCH (09:00)
--- NOTE | 2024-04-03 11:02 | NUR ---
0800 PT REPORTED FEELING WELL AT THIS TIME. PT PRESENTS WITH MILD SWELLING IN LOWER EXTREMITES. PT DENIES VOMITING OR ANY SEVERE NAUSEA. 0940 PT REPORTS HAVING A MILD HEADACHE. PT STATED SHE HAD TYLENOL ALREADY EARLY THIS MORNING. RN EDUCATED PT TO USE CALL LIGHT IF HER PAIN BECOMES UNBEARABLE. PT VERBALIZES UNDERSTANDING. FLUIDS INCREASED TO 125/HR CREATININE LEVELS CHANGED. PT DENIES ANY OTHER CONCERNS AT THIS TIME.
[2024-04-03 11:04] VITALS: BP 136/73
--- NOTE | 2024-04-03 11:31 | NUR ---
MDR with team. Would like to consider swb after stable medically.
[2024-04-03 15:22] VITALS: BP 102/61
[2024-04-03 16:27] LABS: CALCIUM 8.1 mg/dL (8.3-10.5)
[2024-04-03] MEDS ORDERED: NS & 20mEq KCl 1,000 ML IV SCH (17:15)
--- NOTE | 2024-04-03 18:36 | NUR ---
PTS FLUIDS CHANGED TO NS WITH POTASSIUM AFTER REPEAT LABS, IRON STARTED. NO VOMITING, PT DENIES NAUSEA, HAS BEEN EATING WELL TODAY. NO URINE HAS BEEN RECORDED, PT DID NOT VOID INTO HAT. PT STATES SHE HAS VOIDED TODAY.
[2024-04-03 19:00] VITALS: BP 158/72
--- NOTE | 2024-04-03 20:30 | NUR ---
Patient sitting up in recliner. Assisted to the bathroom with walker. Gait steady until turning to sit on stool. Voids cloudy ruthy strong smelling urine. Barrier cream applied to buttucks. Returns to recliner. Smiles and visits readily with nurse.
--- NOTE | 2024-04-03 23:00 | NUR ---
Patients 22gauge IV to LFA noted to be swollen and cool to 5-6 cm swelling. No redness noted at this time. INT dc'd without problems and warm pack applied. Within 20 minutes swelling minimal and no redness. Anabel VENEGAS started IV 20 gauge with sono to RAC without problems and IVF's NS with 20 kcl infusing at 50ml/hr without problems. Patient resting back in bed. Denies pain.
[2024-04-03 23:16] VITALS: BP 148/69
[2024-04-04] VITALS (8 sets, daily range): BP systolic 107–185; BP diastolic 61–90
--- NOTE | 2024-04-04 03:00 | NUR ---
Patients bp 179/85 and hydralazine 10mg given SIV.
--- NOTE | 2024-04-04 06:34 | NUR ---
Patient reports not much sleep this noc.
[2024-04-04 06:54] LABS: HEMATOCRIT 32.3 % (37.0-47.0); HEMOGLOBIN 10.5 g/dL (12.5-16.0); RED BLOOD COUNT 3.69 M/mm3 (4.10-5.30); RED CELL DISTRIBUTION WIDTH 13.1 % (11.5-14.5); WHITE BLOOD COUNT 8.2 K/mm3 (4.8-10.8)
[2024-04-04 07:06] LABS: CALCIUM 7.9 mg/dL (8.3-10.5)
[2024-04-04] MEDS ORDERED: 1/2 NS & 20 mEq KCl 1,000 ML IV SCH (08:00)
--- NOTE | 2024-04-04 11:40 | NUR ---
Pt calls from bathroom per instruction. Upon standing and taking 2-3 steps to sink, pt reports feeling dizzy and has to grab onto sink to stay upright. Assist pt to sit EOB, wait for dizziness to subside then stand at bedside. Pt reports no dizziness upon standing again. Ambulates 1A with walker/gaitbelt. Sitting up in recliner.
--- NOTE | 2024-04-04 13:51 | NUR ---
Spoke with Tish and she would like to work with therapy in [facility]. submitted clinicals to [facility] for authorization. Awaiting response from [facility]. 3rd midnight will be 04/05/24.
--- NOTE | 2024-04-04 13:56 | NUR ---
Orthostatics positive. Pt denied dizziness or feeling lightheaded. Notified provider. No new orders at this time.
[2024-04-04] MEDS ORDERED: amLODIPine 5 MG TAB PO SCH (14:03)
[2024-04-04] MEDS ORDERED: hydrALAZINE 20 MG/ML 1 ML VIAL IV PRN (14:45)
[2024-04-04 15:15] LABS: CALCIUM 8.2 mg/dL (8.3-10.5)
--- NOTE | 2024-04-04 15:28 | NUR ---
APPROVED FOR SWING BED. START OF SERVICE 04/05/24
[2024-04-04] MEDS ORDERED: D5W 1,000 ML IV SCH (16:45)
[2024-04-04] MEDS ORDERED: Sodium Bicarbonate 650 MG TAB PO SCH (17:00)
[2024-04-04] MEDS ORDERED: cefTRIAXone 1 G in Water For Injection,Sterile 10 ML IV SCH (17:30)
--- NOTE | 2024-04-04 19:07 | NUR ---
Pt reports that she takes trulicity on Fridays. Unable to get dose here today. Daughter will bring from home on Sunday. Pt aware she will need to have provider and pharmacy approve prior to administration.
--- NOTE | 2024-04-04 22:00 | NUR ---
PT COMPLAINS OF NAUSEA AT BEGINNING OF SHIFT. PT GIVEN PRN IV ZOFRAN WITH RELIEF OBTAINED. PT HYPERTENSIVE-170/90. PT GIVEN IV HYDRALIZINE PRN WITH IMPROVEMENT OF BP OBTAINED. PT A&OX4. AMBULATED TO WITH WALKER, GAITBELT AND X1 ASSIST WITHOUT DIFFICULTY. LUNGS CLEAR DENIES PAIN AT THIS TIME.
[2024-04-05 03:00] VITALS: BP 136/72
--- NOTE | 2024-04-05 04:56 | NUR ---
PT HAD A 7.7LB WEIGHT GAIN. ARLENE HONEYCUTT HOBBING MACHINE OPERATOR NOTIFIED. NO NEW ORDERS.
[2024-04-05 07:40] VITALS: BP 151/54
[2024-04-05 08:01] LABS: BASO # 0.02 K/mm3 (0.02-0.10); EOS # 0.17 K/mm3 (0.04-0.40); EOS % 2.2 % (1.0-5.0); HEMATOCRIT 33.4 % (37.0-47.0); LYMPH# 1.45 K/mm3 (1.50-4.00); MEAN CELL VOLUME 86 fl (78-100); MEAN CORPUSCULAR HEMOGLOBIN 28 pg (27-31); MEAN CORPUSCULAR HGB CONC 33 g/dL (33-37); MEAN PLATELET VOLUME 12.1 fl (7.4-10.4); MONO # 0.53 K/mm3 (0.20-0.80); RED BLOOD COUNT 3.88 M/mm3 (4.10-5.30); RED CELL DISTRIBUTION WIDTH 13.4 % (11.5-14.5); WHITE BLOOD COUNT 7.7 K/mm3 (4.8-10.8)
[2024-04-05 08:03] LABS: PLATELET COUNT 152 K/mm3 (130-400)
[2024-04-05 08:32] LABS: CALCIUM 8.3 mg/dL (8.3-10.5)
--- NOTE | 2024-04-05 08:35 | NUR ---
CRITICAL LAB CO2 [facility] techniican running BNP due to low supply of blood specimen.
[2024-04-05 10:43] VITALS: BP 119/74
[2024-04-05 15:20] VITALS: BP 167/77
--- NOTE | 2024-04-05 18:48 | NUR ---
REPORT GIVEN TO RUBI RAGLAND
[2024-04-05 19:00] VITALS: BP 126/73
--- NOTE | 2024-04-05 19:39 | NUR ---
PT A&OX4. AMBULATES WITH WALKER AND GAITBELT X1 ASSIST, GAIT UNSTEADY AT TIMES. LUNGS CLEAR. ABD SOFT AND NON TENDER. DENIES PAIN. DENIES NAUSEA AT THIS TIME.
[2024-04-05 23:00] VITALS: BP 134/83
[2024-04-06 03:00] VITALS: BP 119/68
[2024-04-06 07:42] VITALS: BP 128/76
[2024-04-06] MEDS ORDERED: amLODIPine 5 MG TAB PO SCH (09:00)
--- NOTE | 2024-04-06 09:30 | NUR ---
SWITCHING TO SWING BED
[2024-04-06] MEDS ORDERED: Insulin Lispro (HumaLOG) SQ SCH (12:00)
== END 2024-04-06 09:51 | disposition swing bed (61) | DRG 305 ==
LOC: MED/SURG 13:17
PROVIDERS: Family Medicine; ADMIT Family Medicine
DX: I16.1 Hypertensive emergency (principal); A52.16 Charcot's arthropathy (tabetic); N17.9 Acute kidney failure, unspecified; N39.0 Urinary tract infection, site not specified; I65.29 Occlusion and stenosis of unspecified carotid artery; E11.22 Type 2 diabetes mellitus with diabetic chronic kidney disease; I12.9 Hypertensive chronic kidney disease with stage 1 through stage 4 chronic kidney disease, or unspecified chronic kidney disease; N18.9 Chronic kidney disease, unspecified; D63.1 Anemia in chronic kidney disease; Z66 Do not resuscitate; I25.10 Atherosclerotic heart disease of native coronary artery without angina pectoris; G56.03 Carpal tunnel syndrome, bilateral upper limbs; K21.9 Gastro-esophageal reflux disease without esophagitis; E78.5 Hyperlipidemia, unspecified; F32.A Depression, unspecified; B96.20 Unspecified Escherichia coli [E. coli] as the cause of diseases classified elsewhere; E66.9 Obesity, unspecified; R53.81 Other malaise; Z79.4 Long term (current) use of insulin; Z79.82 Long term (current) use of aspirin; Z79.899 Other long term (current) drug therapy
CPT/HCPCS: J0360; J0696; J1815; J2405; J3480; J7030; J7070

== ENCOUNTER → 2024-04-02 | Outpatient (CLI) | payer MEDICARE | LOC: RAD 12:36 | DX: G31.9 Degenerative disease of nervous system, unspecified (principal); I67.82 Cerebral ischemia; I16.1 Hypertensive emergency ==

== ENCOUNTER 2024-04-06 07:40 | Inpatient (IN) | payer MEDICARE ==
[~2024-04-06] VITALS: Ht 160 cm; Wt 78.1 kg
[2024-04-06 07:00] VITALS: BP 128/76
[2024-04-06] MEDS ORDERED: Acetaminophen 500 MG TAB PO PRN (08:00)
[2024-04-06] MEDS ORDERED: Polyethylene Glycol 3350 Powder 17 GM PACKET PO PRN (08:00)
[2024-04-06] MEDS ORDERED: Sodium Bicarbonate 650 MG TAB PO SCH (08:02)
[2024-04-06] MEDS ORDERED: hydrALAZINE 20 MG/ML 1 ML VIAL IV PRN (08:15)
[2024-04-06] MEDS ORDERED: Dextrose 50% Water 25 GM/50 ML SYRINGE IV PRN (08:30)
[2024-04-06] MEDS ORDERED: Glucagon 1 MG VIAL IM PRN (08:30)
[2024-04-06] MEDS ORDERED: Dextrose (Glucose) 15 GM (4 x 3.75 GM) Chewable TAB PACK PO PRN (08:30)
[2024-04-06] MEDS ORDERED: cefTRIAXone 1 G in Water For Injection,Sterile 10 ML IV SCH (09:00)
[2024-04-06] MEDS ORDERED: amLODIPine 5 MG TAB PO SCH (09:00)
[2024-04-06] MEDS ORDERED: Sertraline 50 MG TAB PO SCH (09:00)
[2024-04-06] MEDS ORDERED: Docusate Sodium 100 MG CAP PO SCH (09:00)
[2024-04-06] MEDS ORDERED: Calcitriol 0.25 MCG CAP PO SCH (09:00)
[2024-04-06] MEDS ORDERED: Polyethylene Glycol 3350 Powder 17 GM PACKET PO SCH (09:00)
[2024-04-06] MEDS ORDERED: Clopidogrel 75 MG TAB PO SCH (09:00)
[2024-04-06] MEDS ORDERED: Calcium Carb/Vit D3 500 mg-5 mcg(200 Units) TAB PO SCH (09:00)
[2024-04-06] MEDS ORDERED: Folic Acid 1 MG TAB PO SCH (09:00)
[2024-04-06 10:08] LABS: BASO # 0.02 K/mm3 (0.02-0.10); EOS # 0.14 K/mm3 (0.04-0.40); EOS % 2.1 % (1.0-5.0); HEMATOCRIT 31.7 % (37.0-47.0); HEMOGLOBIN 10.5 g/dL (12.5-16.0); LYMPH# 0.99 K/mm3 (1.50-4.00); MEAN CELL VOLUME 86 fl (78-100); MEAN CORPUSCULAR HEMOGLOBIN 29 pg (27-31); MEAN CORPUSCULAR HGB CONC 33 g/dL (33-37); MEAN PLATELET VOLUME 12.1 fl (7.4-10.4); MONO # 0.43 K/mm3 (0.20-0.80); NEU # 5.19 K/mm3 (1.40-6.50); PLATELET COUNT 160 K/mm3 (130-400); RED BLOOD COUNT 3.68 M/mm3 (4.10-5.30); RED CELL DISTRIBUTION WIDTH 13.5 % (11.5-14.5); WHITE BLOOD COUNT 6.8 K/mm3 (4.8-10.8)
[2024-04-06 10:16] LABS: ALBUMIN 3.1 g/dL (3.4-4.8)
[2024-04-06 10:18] LABS: CALCIUM 8.1 mg/dL (8.3-10.5)
[2024-04-06 10:19] LABS: TOTAL PROTEIN 5.1 g/dL (6.2-8.1)
[2024-04-06 10:21] LABS: TOTAL BILIRUBIN 0.2 mg/dL (0.2-1.2)
--- NOTE | 2024-04-06 10:36 | NUR ---
Critical Carbon Dioxide of 15. MD notified.
[2024-04-06] MEDS ORDERED: Insulin Lispro (HumaLOG) SQ SCH (12:00)
[2024-04-06 19:00] VITALS: BP 154/78
[2024-04-06] MEDS ORDERED: Insulin Glargine-ygfn (Lantus) SQ SCH (21:00)
[2024-04-06] MEDS ORDERED: Gabapentin 300 MG CAP PO SCH (21:00)
--- NOTE | 2024-04-06 22:06 | NUR ---
PT RESTING COMFORTABLY IN BED. DENIES NAUSEA OR PAIN. STATES SOMETIMES SHE IS SOB WHEN AMBULATING. GENERALIZED BRUISING TO BILATERAL ARMS. AXO.
[2024-04-07 07:06] LABS: CALCIUM 8.8 mg/dL (8.3-10.5)
[2024-04-07 07:42] VITALS: BP 179/79
[2024-04-07] MEDS ORDERED: Ferrous Sulfate 325 MG TAB PO SCH (08:00)
[2024-04-07] MEDS ORDERED: Miconazole 2% Topical Powder BOTTLE TP SCH (09:00)
[2024-04-07 12:48] VITALS: BP 122/68
--- NOTE | 2024-04-07 17:56 | NUR ---
PATIENT ALERT AND ORIENTED X4. SHE HAS BEEN POLITE AND COOPERATIVE WITH CARE. SHE DID NOT HAVE AN IV AND SHE IS A VERY DIFFICULT STICK, ROCEPHIN WAS CHANGED FROM IV TO IM. PATIENT WAS INFORMED THAT HER ARM MAY HAVE SOME DISCOMFORT FROM THE INJECTION. SHE VOICED UNDERSTANDING. SHE DID HAVE SOME MILD DISCOMFORT BUT HAS SLOWLY FELT BETTER THROUGHOUT THE DAY. LOTRIMIN POWDER ORDERED TO RED YEASTY AREAS UNDER HER RIGHT BREAST AND STOMACH FOLD. PATIENT IS SITTING IN RECLINER AT THIS TIME. SHE HAS DENIE PAIN AND NAUSEA. STAFF WILL CONTINUE TO MONITOR.
--- NOTE | 2024-04-07 18:49 | NUR ---
Reoprts recived from Mary VENEGAS
[2024-04-07 19:05] VITALS: BP 180/75
--- NOTE | 2024-04-07 20:25 | NUR ---
Pt sitting in recliner watching TV. Denies pain when asked. Pt does not want to take medications when nurse in room so medications will be provided when she is ready for bed. Lotion is applied to lower legs due to pt reporting itching. Call light in reach of pt and she is encouraged to call if assistance is needed pt reports understanding.
--- NOTE | 2024-04-08 06:55 | NUR ---
rePORT GIVEN TO FRANCO VENEGAS
[2024-04-08 07:38] VITALS: BP 195/81
[2024-04-08] MEDS ORDERED: CLONIDINE HYDR0.1 MG PO (08:05)
[2024-04-08] MEDS ORDERED: hydrALAZINE 10 MG TAB PO PRN (08:45)
[2024-04-08] MEDS ORDERED: amLODIPine 5 MG TAB PO SCH (09:00)
[2024-04-08] MEDS ORDERED: cloNIDine 0.1 MG TAB PO SCH ×2 (09:00)
[2024-04-08 11:30] VITALS: BP 91/52
--- NOTE | 2024-04-08 16:52 | NUR ---
PATIENT IS ALERT AND ORIENTED. SHE DENIES PAIN AND NAUSEA WHEN ASKED. SHE REFUSED THERAPY THIS AFTERNOON STATING THAT SHE WAS TIRED. PATIENT HAS BEEN REMINDED THAT SHE NEEDS TO KEEP LEGS ELEVATED TO HELP WITH EDEMA AND NEEDS TO BE UP MOVING AROUND TO PREVENT SKIN BREAKDOWN. SHE IS CURRENTLY SITTING IN HER RECLINER AWAITING SUPPER. STAFF WILL CONT TO MONITOR.
[2024-04-08 19:00] VITALS: BP 167/76
--- NOTE | 2024-04-08 20:45 | NUR ---
pt alert and oriented x4, pt resting in chair for assessment. education on importance for keeping her legs up while in her chair to help alleviate the swelling in her legs. pt assessed without complication. pt assissted to bathroom by leobardo barrientos and chasity pct, pt now resting in bed with call light in reach
[2024-04-09 06:56] LABS: BASO # 0.02 K/mm3 (0.02-0.10); EOS # 0.19 K/mm3 (0.04-0.40); EOS % 3.7 % (1.0-5.0); HEMATOCRIT 26.3 % (37.0-47.0); HEMOGLOBIN 8.8 g/dL (12.5-16.0); LYMPH# 1.22 K/mm3 (1.50-4.00); MEAN CELL VOLUME 88 fl (78-100); MEAN CORPUSCULAR HEMOGLOBIN 29 pg (27-31); MEAN CORPUSCULAR HGB CONC 34 g/dL (33-37); MEAN PLATELET VOLUME 12.2 fl (7.4-10.4); MONO # 0.43 K/mm3 (0.20-0.80); NEU # 3.27 K/mm3 (1.40-6.50); PLATELET COUNT 141 K/mm3 (130-400); RED CELL DISTRIBUTION WIDTH 13.9 % (11.5-14.5); WHITE BLOOD COUNT 5.1 K/mm3 (4.8-10.8)
[2024-04-09 07:00] VITALS: BP 142/73
--- NOTE | 2024-04-09 07:00 | NUR ---
REPORT RECEIVED FROM RUBI OLIVO
[2024-04-09 07:10] LABS: ALBUMIN 2.7 g/dL (3.4-4.8)
[2024-04-09 07:12] LABS: CALCIUM 8.8 mg/dL (8.3-10.5)
[2024-04-09 07:13] LABS: TOTAL PROTEIN 4.6 g/dL (6.2-8.1)
[2024-04-09 07:15] LABS: TOTAL BILIRUBIN 0.2 mg/dL (0.2-1.2)
--- NOTE | 2024-04-09 07:45 | NUR ---
PATIENT SITTING IN CHAIR AT THIS TIME. DENIES NEEDS OR COMPLAINTS. CHAIR ALARMED, CALL LIGHT WITHIN REACH.
--- NOTE | 2024-04-09 10:00 | NUR ---
PATIENT ALERT AND ORIENTED X4, DENIES PAIN AT THIS TIME. PATIENT STATES SHE FEELS READY TO GO HOME. THIS NURSE EXPLAINED ROUNDS WOULD BE DONE SOON AND SHE COULD DISCUSS THAT WITH THE MDR TEAM. PATIENT AGREEABLE. PATIENT EDUCATED ON THE BENEFIT OF ELEVATING LEGS TO REDUCE SWELLING. PATIENT VERBALIZED UNDERSTANDING AND AGREEABLE TO ELEVATE AT THIS TIME. ASSESSMENT COMPLETE. PATIENT DENIES OTHER NEEDS OR COMPLAINTS AT THIS TIME. CHAIR ALARM ON, CALL LIGHT WITHIN REACH.
[2024-04-09] MEDS ORDERED: AMLODIPINE BESYL5 MG PO (17:59)
--- NOTE | 2024-04-09 19:00 | NUR ---
REPORT TO RUBI DORAN
[2024-04-09 19:10] VITALS: BP 139/66
--- NOTE | 2024-04-09 19:12 | NUR ---
RECEIVED REPORT FROM SITA VENEGAS
--- NOTE | 2024-04-10 05:28 | NUR ---
PATIENT A&O X 4. HAS BEEN UP TO AND FROM TOILET, AMBULATES WITH GAIT BELT WALKER AND ONE ASSIST. DENIES PAIN OR DISCOMFORT. STATES LOOKING FORWARD TO GOING HOME. CALL LIGHT IN REACH.
--- NOTE | 2024-04-10 07:00 | NUR ---
REPORT RECEIVED FROM RUBI DORAN
[2024-04-10 07:15] VITALS: BP 162/73
--- NOTE | 2024-04-10 07:30 | NUR ---
PATIENT RESTING IN BED WITH EYES CLOSED. EASILY AROUSABLE TO VOICE. ACCU CHECK OBTAINED. PATIENT ASSISTED TO BATHROOM AT THIS TIME.
--- NOTE | 2024-04-10 11:10 | NUR ---
DISCHARGE INSTRUCTIONS REVIEWED WITH PATIENT AT THIS TIME. ALL QUESTIONS ANSWERED. PATIENT VERBALIZED UNDERSTANDING. ALL PATIENT ITMES AND BELONGINGS SENT WITH PATIENT AT THIS TIME. PATIENT DISCHARGED HOME AT THIS TIME VIA WHEELCHAIR IN CARE OF .
== END 2024-04-10 11:10 | disposition home or self-care (01) | DRG 948 ==
LOC: MED/SURG 07:40
PROVIDERS: ADMIT Family Medicine
DX: R53.81 Other malaise (principal); N17.9 Acute kidney failure, unspecified; I16.1 Hypertensive emergency; N39.0 Urinary tract infection, site not specified; N18.32 Chronic kidney disease, stage 3b; I12.9 Hypertensive chronic kidney disease with stage 1 through stage 4 chronic kidney disease, or unspecified chronic kidney disease; E11.22 Type 2 diabetes mellitus with diabetic chronic kidney disease; E11.610 Type 2 diabetes mellitus with diabetic neuropathic arthropathy; Z66 Do not resuscitate; I25.10 Atherosclerotic heart disease of native coronary artery without angina pectoris; K21.9 Gastro-esophageal reflux disease without esophagitis; D63.1 Anemia in chronic kidney disease; F32.A Depression, unspecified; E78.5 Hyperlipidemia, unspecified; Z79.4 Long term (current) use of insulin; Z79.82 Long term (current) use of aspirin; Z79.899 Other long term (current) drug therapy
CPT/HCPCS: J0696; J1815

== ENCOUNTER → 2024-06-24 | Outpatient (CLI) | payer MEDICARE ==
[~2024-06-24] MED LIST changes: +CLONIDINE HYDR0.1 MG PO
[2024-06-24 10:04] LABS: ALBUMIN 3.6 g/dL (3.4-4.8)
[2024-06-24 10:07] LABS: TOTAL PROTEIN 6.6 g/dL (6.2-8.1)
[2024-06-24 10:09] LABS: TOTAL BILIRUBIN 0.4 mg/dL (0.2-1.2)
== END ==
LOC: LAB 09:30
PROVIDERS: Internal Medicine Nephrology
DX: I12.9 Hypertensive chronic kidney disease with stage 1 through stage 4 chronic kidney disease, or unspecified chronic kidney disease (principal); N18.4 Chronic kidney disease, stage 4 (severe); N25.81 Secondary hyperparathyroidism of renal origin

== ENCOUNTER → 2024-06-24 | Outpatient (CLI) | payer MEDICARE | LOC: LAB 09:26 | DX: E11.22 Type 2 diabetes mellitus with diabetic chronic kidney disease (principal); N18.9 Chronic kidney disease, unspecified ==

== ENCOUNTER → 2024-08-19 | Outpatient (CLI) | payer MEDICARE ==
[2024-08-19 15:17] LABS: CALCIUM 8.8 mg/dL (8.3-10.5)
== END ==
LOC: LAB 14:19
PROVIDERS: Internal Medicine Nephrology
DX: I12.9 Hypertensive chronic kidney disease with stage 1 through stage 4 chronic kidney disease, or unspecified chronic kidney disease (principal); N18.4 Chronic kidney disease, stage 4 (severe); N25.81 Secondary hyperparathyroidism of renal origin